=== PATIENT | male | born 1985 | race African-American/Black ===

== ENCOUNTER 2016-08-16 11:48 | Emergency (ER) | payer OTHER ==
[~2016-08-16] VITALS: Ht 180.3 cm; Wt 81.6 kg
[~2016-08-16 11:48] MED LIST: ACETAMINOPHEN-1 EAC1 ORAL; ALBUTEROL SULF8.5 GM INH; AMOXICILLIN500 MG ORAL; AZITHROMYCIN250 MG ORAL; BENTYL10 MG ORAL; CIPROFLOXACIN500 M2 ORAL; CITALOPRAM HBR20 M1 ORAL; CLINDAMYCIN HC300 MG ORAL; CORTISONE14 GM TP; FLOVENT2 PUFF1 INH; FLUTICASONE PRO30 GM TOPIC; IBUPROFEN600 MG ORAL; IBUPROFEN800 MG ORAL; LORATADINE10 M1 PO; METRONIDAZOLE500 MG ORAL; NAPROSYN500 M1 ORAL; NORCO 5-325 TA1 EACH ORAL; NORVIR100 MG ORAL; PREDNISONE20 M1 PO; PREDNISONE20 MG ORAL; PREZISTA400 MG ORAL; STRIBILD TABLE1 EACH PO; TERBINAFINE15 GM TP; TRUVADA 200 MG1 EAC1 ORAL; VENTOLIN HFA18 GM INH; ZITHROMAX250 MG ORAL; ZOFRAN ODT4 MG ORAL; qvar PO; vit d2 PO
[2016-08-16 12:30] VITALS: BP 121/79
--- NOTE | 2016-08-16 12:32 | Emergency Room Report ---
History of Present Illness General Chief Complaint: Sore Throat Source: Medical Record Present Illness HPI 31-year-old male presents emergency department with nasal congestion, sore throat which is 5/10 in severity, burning in nature, and intermittent cough x10 days. Patient states that the cough just began yesterday. Patient states that his nasal congestion is his main symptoms he also reports intermittent headaches due to increased pressure in the face. Patient states has history of Asthma and HIV. Patient states his last viral load was undetectable and he has a normal CD4 count. Patient denies fever she reports chills states he is up-to- date with vaccinations denies ill contacts or recent travel. Denies CP, Palpitations, LOC, AMS, dizziness, Changes in Vision, Sensation, paresthesias, or a sudden severe headache. Allergies: Coded Allergies: PENICILLINS (Unverified Allergy, Unknown, 12/08/14) Patient History Past Medical History: see triage record, HIV Past Surgical History: none Pertinent Family History: none Immunizations: UTD Reviewed Nursing Documentation: PMH: Agreed, PSxH: Agreed Nursing Documentation-PMH Past Medical History: No History, Except For Hx Asthma: Yes Review of Systems All Other Systems: negative except mentioned in HPI Physical Exam Vital Signs Date Time Temp Pulse Resp B/P Pulse Ox O2 Delivery O2 Flow Rate FiO2 08/16/16 12:10 98.1 75 18 121/79 99 Room Air Sp02 EP Interpretation: reviewed, normal General Appearance: no apparent distress, alert, GCS 15, non-toxic Head: normocephalic, atraumatic Eyes: bilateral eye PERRL, bilateral eye normal inspection ENT: hearing grossly normal, normal pharynx, no angioedema, normal voice, TMs + canals normal, uvula midline, moist mucus membranes, nasal congestion, pharyngeal erythema, other - frontal and maxillary sinus TTP Neck: full range of motion, supple/symm/no masses Respiratory: chest non-tender, lungs clear, normal breath sounds, speaking full sentences Cardiovascular #1: regular rate, rhythm, no edema Gastrointestinal: normal bowel sounds, non tender, soft, no guarding, no rebound Rectal: deferred Genitourinary: normal inspection, no CVA tenderness Musculoskeletal: back normal, gait/station normal, normal range of motion, non- tender, no calf tenderness Neurologic: alert, oriented x3, responsive, motor strength/tone normal, sensory intact, speech normal Psychiatric: judgement/insight normal, memory normal, mood/affect normal, no suicidal/homicidal ideation Skin: normal color, no rash, warm/dry, well hydrated Lymphatic: no adenopathy Medical Decision Making PA Attestation Dr. Bell is my supervising Physician whom patient management has been discussed with. Diagnostic Impression: Primary Impression: Acute sinusitis Qualified Codes: J01.10 - Acute frontal sinusitis, unspecified Additional Impressions: Acute sinus infection Qualified Codes: J01.10 - Acute frontal sinusitis, unspecified Acute sinusitis with symptoms > 10 days ER Course !* PT ALLERGIC TO PCN, therefore Amoxicillin was not prescribed due to allergy ! Pt. presents to the ED c/o nasal congestion, sore throat and intermittent cough x10 days. Patient states that the cough just began yesterday Ddx considered but are not limited to URI, pneumonia, PE, strep pharyngitis, meningitis, Sinusitis. Vital signs: Pt. is afebrile, the remaining VS are WNL H&PE are most consistent with Sinusitis due to symptoms for more than 10 days.. ORDERS: none required at this time, the diagnosis is clinical ED INTERVENTIONS: None required at this time. --PT. EDUCATION: Discussed rebound congestion with use of Affrin DISCHARGE: At this time pt. is stable for d/c to home. Will provide printed patient care instructions, and any necessary prescriptions. Care plan and follow up instructions have been discussed with the patient prior to discharge. Last Vital Signs Date Time Temp Pulse Resp B/P Pulse Ox O2 Delivery O2 Flow Rate FiO2 08/16/16 12:10 98.1 75 18 121/79 99 Room Air Disposition: HOME, SELF-CARE Condition: Stable Scripts Albuterol Sulfate* (ALBUTEROL SULFATE MDI*) 8.5 Gm Hfa.aer.ad 2 PUFF INH Q3H, #1 INH 2 Refills Prov: Jennifer Vieyra.AGreg 08/16/16 Lidocaine HCl (Lidocaine HCl Viscous) 100 Ml Solution 15 ML PO QID Y for For Pain, #120 ML Prov: Jennifer Vieyra P.AGreg 08/16/16 Clindamycin Hcl (CLINDAMYCIN HCL) 300 Mg Capsule 300 MG ORAL TID for 7 Days, #21 CAP Prov: Jennifer Vieyra.A. 08/16/16 Levofloxacin* (LEVAQUIN*) 500 Mg Tablet 500 MG ORAL DAILY for 5 Days, #5 TAB Prov: Jennifer Vieyra 08/16/16 Referrals: NON PHYSICIAN (PCP) Patient Instructions: Sinusitis, Adult, [id number], Sore Throat Additional Instructions: Take medications as directed. Follow up with PCP in 3-5 days Return sooner to ED if new symptoms occur, or current symptoms become worse. Jennifer Vieyra Aug 16, 2016 12:32
[2016-08-16] MEDS ORDERED: LEVAQUIN500 MG ORAL (12:39)
[2016-08-16] MEDS ORDERED: CLINDAMYCIN HC300 MG ORAL (12:39)
[2016-08-16] MEDS ORDERED: LIDOCAINE VISCO20 ML PO (12:39)
[2016-08-16 12:47] VITALS: BP 121/79
[2016-08-16] MEDS ORDERED: ALBUTEROL SULF8.5 GM INH (12:48)
== END 2016-08-16 12:48 | disposition home or self-care (01) ==
LOC: EMR 12:20
DX: J01.90 Acute sinusitis, unspecified (principal); J45.909 Unspecified asthma, uncomplicated
CPT/HCPCS: 99284

== ENCOUNTER 2016-09-09 15:50 | Emergency (ER) | payer OTHER ==
[~2016-09-09] VITALS: Ht 180.3 cm; Wt 84.8 kg
[~2016-09-09 15:50] MED LIST changes: +LEVAQUIN500 MG ORAL; +LIDOCAINE VISCO20 ML PO
[2016-09-09 16:30] VITALS: BP 133/79
[2016-09-09] MEDS ORDERED: IBUPROFEN600 MG ORAL (16:59)
[2016-09-09 17:11] VITALS: BP 133/79
--- NOTE | 2016-09-09 19:43 | Emergency Room Report ---
History of Present Illness General Chief Complaint: Pain Source: Patient Present Illness HPI The patient is a 31-year-old male presenting with right knee pain which began 4 months prior. Patient is unsure of why the pain began and denies any injury to the knee. Pain is described as a 10 out of 10 dull ache it does not radiate from the knee. Pain worse with touch and movement. Patient has seen his primary care doctor who has scheduled an MRI next month. Patient has not had an x-ray done. Pt denies any other symptoms including rash, F, chills, numbness/ tingling Allergies: Coded Allergies: PENICILLINS (Unverified Allergy, Unknown, 12/08/14) Patient History Past Medical History: see triage record Pertinent Family History: none Reviewed Nursing Documentation: PMH: Agreed, PSxH: Agreed Nursing Documentation-PMH Hx Asthma: Yes Review of Systems All Other Systems: negative except mentioned in HPI Physical Exam Vital Signs Date Time Temp Pulse Resp B/P Pulse Ox O2 Delivery O2 Flow Rate FiO2 09/09/16 16:20 98.1 72 16 133/79 100 Room Air Sp02 EP Interpretation: reviewed, normal General Appearance: no apparent distress, alert, GCS 15, non-toxic Head: normocephalic, atraumatic Eyes: bilateral eye PERRL, bilateral eye normal inspection Musculoskeletal: normal inspection, gait/station normal, normal range of motion , tender - TTP over anterior knee Neurologic: alert, oriented x3, responsive, motor strength/tone normal, sensory intact, speech normal Psychiatric: judgement/insight normal, memory normal, mood/affect normal, no suicidal/homicidal ideation Reflexes: 3+ bicep (R), 3+ bicep (L), 3+ tricep (R), 3+ tricep (L), 3+ knee (R) , 3+ knee (L) Skin: normal color, no rash, warm/dry, well hydrated Lymphatic: no adenopathy Procedures Splinting Splinting : Consent: Verbal Location: R knee Pre-Made Type: ERICA wrap Splint: knee Pre-Proc Neuro Vasc Exam: normal Post-Proc Neuro Vasc Exam: normal Patient Tolerated: Well Complications: None Medical Decision Making PA Attestation Dr. Pineda is my supervising physician. Patient management was discussed with my supervising physician Diagnostic Impression: Primary Impression: Strain of right knee ER Course The patient is a 31-year-old male presenting with right knee pain which began 4 months prior Ddx considered include but not limited to sprain/strain, fracture, contusion PE: vitals WNL. NAD R knee: Full AROM. No edema. No erythema. No laxity. TTP over the anterior joint line. SILT X-ray of the knee is unremarkable. ERICA wrap is placed over the right knee the patient is provided crutches. Pt is given motrin for pain. ER precautions given and pt will FU with PMD and have MRI done. Other X-Ray Diagnostic Results Other X-Ray Diagnostic Results : X-Ray Ordered: R knee Date: Sep 09, 2016 EP Interpretation: Yes Findings: no fractures, no dislocation, no soft tissue swelling Number of Views: 3 PA Scribe Text I am acting as scribe for my supervising physician. My supervising physician's interpretation of the R knee xrays are there are no fractures, dislocations or soft tissue swelling. Last Vital Signs Date Time Temp Pulse Resp B/P Pulse Ox O2 Delivery O2 Flow Rate FiO2 09/09/16 17:11 98.1 16 133/79 100 Room Air 09/09/16 16:20 72 Status: improved Disposition: HOME, SELF-CARE Condition: Improved Scripts Ibuprofen* (MOTRIN*) 600 Mg Tablet 600 MG ORAL Q8H Y for For Pain, #30 TAB 0 Refills Prov: JOHN LORA 09/09/16 [facility]errals[facility] (PCP) Patient Instructions: Knee Pain Additional Instructions: I discussed my findings with the patient. All questions and concerns have been answered. Treatment and medication compliance have been addressed. I advised the patient that they need to follow up with PMD in 3-5 days. Return to ED if pain remains or worsens, numbness or tingling occurs, new rash is noticed, fever is noticed, or if needed for any reason. Patient verbalized understanding of discharge instructions. JOHN LORA Sep 09, 2016 19:43
--- NOTE | 2016-09-10 12:10 | Diagnostic Imaging Report ---
Indication: Pain 3 views of the right knee were obtained. Findings: No acute fracture, malalignment, or joint effusion are identified. Joint space is relatively well-maintained. Bone mineralization is within normal limits for age. Impression: Negative exam
== END 2016-09-09 17:10 | disposition home or self-care (01) ==
LOC: EMR 16:57
DX: S86.211A Strain of muscle(s) and tendon(s) of anterior muscle group at lower leg level, right leg, initial encounter (principal); J45.909 Unspecified asthma, uncomplicated; Z88.0 Allergy status to penicillin; X58.XXXA Exposure to other specified factors, initial encounter; Y92.9 Unspecified place or not applicable; Y99.8 Other external cause status
CPT/HCPCS: 29530; 99283

== ENCOUNTER 2016-10-30 08:27 | Emergency (ER) | payer OTHER ==
[~2016-10-30] VITALS: Ht 180.3 cm; Wt 79.8 kg
[2016-10-30] MEDS ORDERED: LORATADINE10 M1 PO (08:39)
[2016-10-30] MEDS ORDERED: STRIBILD TABLE1 EACH PO (08:41)
[2016-10-30] MEDS ORDERED: FLOVENT2 PUFFS INH (08:41)
[2016-10-30 08:46] VITALS: BP 119/71
[2016-10-30 09:00] VITALS: BP 119/71
[2016-10-30] MEDS ORDERED: NORCO 5-325 TA1 EACH ORAL (09:00)
[2016-10-30] MEDS ORDERED: PEPCID20 MG ORAL (09:00)
--- NOTE | 2016-10-30 09:29 | Emergency Room Report ---
History of Present Illness General Chief Complaint: Diarrhea Source: Patient Present Illness HPI 31YOM with 3-4 days 3x daily watery diarrhea asssoc with stomach "cramps." No abd pain, fever/chills, nausea/vomiting, sick contacts, foreign travel. HIV+, on HAART. Undetectable viral load. Been taking VERY high doses of ibuprofen for chronic right knee pain - up to 2-3 800mg tablets ibuprofen THREE times a day. Was seen here prior for right knee pain, xray was negative. Pain worse when walking, feels it "under knee." Had MRI last week but doesnt know result yet. Denies trauma to knee, swelling, redness, fever/chills. Allergies: Coded Allergies: PENICILLINS (Unverified Allergy, Unknown, 12/08/14) Patient History Past Medical History: HIV Past Surgical History: none Pertinent Family History: none Social History: Denies: alcohol use, drug use, smoking Immunizations: UTD Reviewed Nursing Documentation: PMH: Agreed, PSxH: Agreed Nursing Documentation-PMH Past Medical History: No History, Except For Hx Asthma: Yes Review of Systems All Other Systems: negative except mentioned in HPI Physical Exam Vital Signs Date Time Temp Pulse Resp B/P Pulse Ox O2 Delivery O2 Flow Rate FiO2 10/30/16 08:31 98.2 94 16 119/71 98 Room Air Sp02 EP Interpretation: reviewed, normal General Appearance: normal inspection, well appearing, no apparent distress, alert, GCS 15, non-toxic Head: normocephalic, atraumatic Eyes: bilateral eye EOMI, bilateral eye PERRL ENT: normal ENT inspection, hearing grossly normal, normal voice Neck: normal inspection, full range of motion, supple, no bony tend Respiratory: normal inspection, lungs clear, normal breath sounds, no respiratory distress, no retraction, no wheezing Cardiovascular #1: regular rate, rhythm, no edema Gastrointestinal: normal inspection, normal bowel sounds, non tender, soft, no guarding, no hernia Genitourinary: no CVA tenderness Musculoskeletal: normal inspection, back normal, normal range of motion, Melisa' s Sign negative, other - right knee: no swelling, no erythema. No joint laxity Neurologic: normal inspection, alert, oriented x3, responsive, bevel gear generator operator III-XII nml as tested, motor strength/tone normal, speech normal Psychiatric: normal inspection, judgement/insight normal, mood/affect normal Skin: normal inspection Medical Decision Making Diagnostic Impression: Primary Impression: Diarrhea Qualified Codes: R19.7 - Diarrhea, unspecified Additional Impression: Right knee pain Qualified Codes: M25.561 - Pain in right knee; G89.29 - Other chronic pain ER Course Diarrhea and cramps likely gastritis from overdosing of ibuprofen for chronic right knee pain Abd soft, NT/ND - unlikely perforation. No blood in stool, unlikely upper GI bleed No sign of septic infection right knee Atraumatic - no joint laxity Joint pain possibly related to side effect of antiretrovirals Advised STOP Ibuprofen Rx Pepcid for 1 week Rx norco for knee pain PMD followup for MRI result, consider switching HAART meds given joint pain Last Vital Signs Date Time Temp Pulse Resp B/P Pulse Ox O2 Delivery O2 Flow Rate FiO2 10/30/16 09:00 98.2 94 16 119/71 98 Room Air Status: improved Disposition: HOME, SELF-CARE Condition: Improved Scripts Famotidine (PEPCID) 20 Mg Tablet 20 MG ORAL BID for 7 Days, #14 TAB 0 Refills Prov: JESSICA PAYAN M.D. 10/30/16 Hydrocodone Bit/Acetaminophen 5-325* (NORCO 5-325*) 1 Each Tablet 1 TAB ORAL Q8HR Y for knee pain, #20 TAB 0 Refills Prov: JESSICA PAYAN M.D. 10/30/16 Patient Instructions: Gastritis, Adult Additional Instructions: - STOP ibuprofen - Take pepcid twice daily for 1 week - Take [place] as needed for knee pain - Follow up with your doctor for result of MRI - Discuss with doctor possibility that your medications are contributing to your knee pain JESSICA PAYAN M.D. Oct 30, 2016 09:29
== END 2016-10-30 09:06 | disposition home or self-care (01) ==
LOC: EMR 08:44
DX: R19.7 Diarrhea, unspecified (principal); M25.561 Pain in right knee; G89.29 Other chronic pain; J45.909 Unspecified asthma, uncomplicated; Z88.0 Allergy status to penicillin
CPT/HCPCS: 99284

== ENCOUNTER 2016-11-28 07:32 | Emergency (ER) | payer OTHER ==
[~2016-11-28] VITALS: Ht 172.7 cm; Wt 49.9 kg
[~2016-11-28 07:32] MED LIST changes: +FLOVENT2 PUFFS INH; +PEPCID20 MG ORAL
[2016-11-28 07:45] VITALS: BP 120/80
[2016-11-28 07:55] VITALS: BP 120/80
[2016-11-28] MEDS ORDERED: AZITHROMYCIN250 MG ORAL (07:58)
[2016-11-28] MEDS ORDERED: IBUPROFEN600 MG ORAL (07:58)
--- NOTE | 2016-11-29 07:17 | Emergency Room Report ---
History of Present Illness General Chief Complaint: Flu Like Symptoms Source: Patient Present Illness HPI Patient present with complaints of sore throat Ongoing for the past 2 days Increased pain with swallowing Denies any fevers Pain is 4/10 sharp Denies any posterior neck pain denies any headache or visual changes denies any chest pain or shortness of breath he also has a mild runny nose Patient appeared to be limping in triage questions further patient reported that he had chronic right knee pain for which she was getting worked up as an outpatient, and has had MRI Allergies: Coded Allergies: PENICILLINS (Unverified Allergy, Unknown, 12/08/14) Patient History Past Medical History: see triage record Pertinent Family History: none Reviewed Nursing Documentation: PMH: Agreed, PSxH: Agreed Nursing Documentation-PMH Hx Cardiac Problems: No Hx Hypertension: No Hx Pacemaker: No Hx Asthma: Yes Hx COPD: No Hx Diabetes: No Hx Cancer: No Hx Gastrointestinal Problems: No Hx Dialysis: No History Of Psychiatric Problem: No Hx Cerebrovascular Accident: No Hx Seizures: No Review of Systems All Other Systems: negative except mentioned in HPI Physical Exam Vital Signs Date Time Temp Pulse Resp B/P Pulse Ox O2 Delivery O2 Flow Rate FiO2 11/28/16 07:39 98.1 78 16 120/80 99 Room Air Sp02 EP Interpretation: reviewed, normal General Appearance: well appearing, no apparent distress Head: normocephalic, atraumatic Eyes: bilateral eye EOMI, bilateral eye PERRL ENT: no angioedema, normal voice, pharyngeal erythema Neck: supple, thyroid normal, no meningismus Respiratory: lungs clear, normal breath sounds Cardiovascular #1: regular rate, rhythm Gastrointestinal: soft, no mass Neurologic: alert, oriented x3, responsive Skin: no rash Lymphatic: no adenopathy Medical Decision Making Diagnostic Impression: Primary Impression: Pharyngitis ER Course Patient has clinical findings the pharyngitis Was placed on oral antibiotics Patient's right knee discomfort is not further addressed and has been worked up as an outpatient Last Vital Signs Date Time Temp Pulse Resp B/P Pulse Ox O2 Delivery O2 Flow Rate FiO2 11/28/16 07:55 98.1 16 120/80 99 Room Air 11/28/16 07:45 78 Status: unchanged Disposition: HOME, SELF-CARE Condition: Stable Scripts Ibuprofen* (MOTRIN*) 600 Mg Tablet 600 MG ORAL Q8H Y for For Pain, #20 TAB 0 Refills Prov: JAMEHDOR,ALI D.O. 11/28/16 Azithromycin* (ZITHROMAX*) 250 Mg Tablet 500 MG ORAL ONCE for 7 Days, TAB 0 Refills Prov: GARDENIA GUTIERREZ D.O. 11/28/16 [facility] ([facility]P) Patient Instructions: Pharyngitis, [id number] Additional Instructions: Patient is provided with the discharge instructions notified to follow up with primary doctor in the next 2-3 days otherwise return to the er with any worsening symptoms. Please note that this report is being documented using [email or web address] technology. This can lead to erroneous entry secondary to incorrect interpretation by the dictating instrument. GARDENIA GUTIERREZ D.O. November 29, 2016 07:17
== END 2016-11-28 07:55 | disposition home or self-care (01) ==
LOC: EMR 07:46
DX: J02.9 Acute pharyngitis, unspecified (principal); J45.909 Unspecified asthma, uncomplicated
CPT/HCPCS: 99284

== ENCOUNTER 2017-02-02 12:25 | Emergency (ER) | payer OTHER ==
[~2017-02-02] VITALS: Ht 180.3 cm; Wt 80.7 kg
[2017-02-02 12:28] VITALS: BP 128/67
--- NOTE | 2017-02-02 12:59 | Emergency Room Report ---
History of Present Illness General Chief Complaint: Sore Throat Source: Patient Present Illness HPI 31 YO Male presents to the ED c/o : sore throat, tonsillar swelling, and nasal congestion x 1week. denies fevers or cough. denies neck pain or stiffness. pain is 9/10 in severity exacerbated with swallowing, described as razor blades on the back of the throat. pt. has been doing warm salt gargles with no relief. denies rashes, abdominal pain, recent travel or ill contacts. Denies CP, Palpitations, LOC, AMS, dizziness, Changes in Vision, Sensation, paresthesias, or a sudden severe headache. Allergies: Coded Allergies: PENICILLINS (Unverified Allergy, Unknown, 12/08/14) Patient History Past Medical History: see triage record Past Surgical History: none Pertinent Family History: none Immunizations: UTD Reviewed Nursing Documentation: PMH: Agreed, PSxH: Agreed Nursing Documentation-PMH Hx Hypertension: No Hx Pacemaker: No Hx Asthma: Yes Hx COPD: No Hx Diabetes: No Hx Cancer: No Hx Gastrointestinal Problems: No Hx Dialysis: No Hx Cerebrovascular Accident: No Hx Seizures: No Review of Systems All Other Systems: negative except mentioned in HPI Physical Exam Vital Signs Date Time Temp Pulse Resp B/P Pulse Ox O2 Delivery O2 Flow Rate FiO2 02/02/17 12:28 97.5 95 16 128/67 97 Room Air Sp02 EP Interpretation: reviewed, normal General Appearance: no apparent distress, alert, GCS 15, non-toxic Head: normocephalic, atraumatic Eyes: bilateral eye PERRL, bilateral eye normal inspection ENT: hearing grossly normal, normal pharynx, no angioedema, normal voice, TMs + canals normal, uvula midline, nasal congestion, tonsillar swelling, pharyngeal erythema Neck: full range of motion, no meningismus, no bony tend, supple/symm/no masses Respiratory: lungs clear, normal breath sounds, speaking full sentences Cardiovascular #1: regular rate, rhythm, no edema Rectal: deferred Musculoskeletal: back normal, gait/station normal, normal range of motion, non- tender Neurologic: alert, oriented x3, responsive, motor strength/tone normal, sensory intact, speech normal Psychiatric: judgement/insight normal, memory normal, mood/affect normal Skin: normal color, no rash, warm/dry, well hydrated Lymphatic: no adenopathy Medical Decision Making PA Attestation Dr. Bell is my supervising Physician whom patient management has been discussed with. Diagnostic Impression: Primary Impression: Pharyngitis, acute Qualified Codes: J02.9 - Acute pharyngitis, unspecified ER Course Pt. presents to the ED c/o : sore throat, tonsillar swelling, and nasal congestion x 1week. denies fevers or cough. denies neck pain or stiffness. Ddx considered but are not limited to: pharyngitis, strep, YARD LABORER, ludwigs angina, URI Vital signs: are WNL, pt. is afebrile H&PE are most consistent with: pharyngitis presumed strep. ORDERS: None required at this time as the diagnosis is clinical ED INTERVENTIONS: none required at this time. DISCHARGE: At this time pt. is stable for d/c to home. Will provide printed patient care instructions, and any necessary prescriptions. Care plan and follow up instructions have been discussed with the patient prior to discharge. Last Vital Signs Date Time Temp Pulse Resp B/P Pulse Ox O2 Delivery O2 Flow Rate FiO2 02/02/17 12:28 97.5 95 16 128/67 97 Room Air Disposition: HOME, SELF-CARE Condition: Stable Scripts Acetaminophen* (TYLENOL EXTRA STRENGTH*) 500 Mg Tablet 500 MG ORAL Q6H, #20 TAB 0 Refills Prov: Jennifer Vieyra 02/02/17 Pseudoephedrine Hcl* (NEXAFED*) 30 Mg Tablet 30 MG ORAL Q6H Y for congestion, #20 TAB Prov: Jennifer Vieyra.AGreg 02/02/17 Azithromycin* (ZITHROMAX*) 250 Mg Tablet 250 MG ORAL DAILY for 6 Days, #6 TAB 0 Refills Prov: Jennifer VieyraAGreg 02/02/17 Lidocaine HCl 2% Viscous (Lidocaine HCl 2% Viscous) 100 Ml Solution 15 ML ORAL QID, #118 ML Prov: Jennifer Vieyra 02/02/17 Patient Instructions: Pharyngitis, [id number] Additional Instructions: Take medications as directed. Follow up with a Primary Care Provider in 3-5 days, even if your symptoms have resolved. --Please review list of primary care clinics, if you do not already have a primary care provider Return sooner to ED if new symptoms occur, or current symptoms become worse. - Please note that this Emergency Department Report was dictated using [employer] in the [employer]ou[employer] therapist technology software, occasionally this can lead to erroneous entry secondary to interpretation by the dictation equipment. Jennifer Vieyra Feb 02, 2017 12:59
[2017-02-02] MEDS ORDERED: AZITHROMYCIN250 MG ORAL (13:01)
[2017-02-02] MEDS ORDERED: TYLENOL EXTRA500 MG ORAL (13:01)
[2017-02-02] MEDS ORDERED: LIDOCAINE VISC100 ML ORAL (13:01)
[2017-02-02] MEDS ORDERED: NEXAFED30 MG ORAL (13:01)
[2017-02-02 13:07] VITALS: BP 128/67
== END 2017-02-02 13:07 | disposition home or self-care (01) ==
LOC: EMR 12:47
DX: J02.9 Acute pharyngitis, unspecified (principal); J45.909 Unspecified asthma, uncomplicated; Z88.0 Allergy status to penicillin
CPT/HCPCS: 99284

== ENCOUNTER 2017-03-20 09:50 | Emergency (ER) | payer OTHER ==
[~2017-03-20] VITALS: Ht 180.3 cm; Wt 81.6 kg
[~2017-03-20 09:50] MED LIST changes: +LIDOCAINE VISC100 ML ORAL; +NEXAFED30 MG ORAL; +TYLENOL EXTRA500 MG ORAL
[2017-03-20 10:20] VITALS: BP 115/63
[2017-03-20 10:53] LABS: APPEARANCE,URINE CLEAR; KETONES,URINE NEGATIVE (NEGATIVE); LEUKOCYTE ESTERASE ,URINE NEGATIVE (NEGATIVE); NITRITE,URINE NEGATIVE (NEGATIVE); PH,URINE 8 (4.5-8.0); PROTEIN,URINE NEGATIVE (NEGATIVE); UROBILINOGEN,URINE NORMAL MG/DL (0.0-1.0)
[2017-03-20 10:54] LABS: BASOPHILS % (AUTO) 0.9 % (0.0-2.0); LYMPHOCYTES % (AUTO) 21.5 % (20.0-45.0); MEAN CORPUSCULAR HEMOGLOBIN 28.1 PG (27.0-31.0); MEAN CORPUSCULAR HGB CONC 31.8 G/DL (32.0-36.0); MEAN CORPUSCULAR VOLUME 88 FL (80-99); MEAN PLATELET VOLUME 10.3 FL (6.5-10.1); MONOCYTES % (AUTO) 8.4 % (1.0-10.0); NEUTROPHILS % (AUTO) 69.3 % (45.0-75.0); PLATELET COUNT 151 K/UL (150-450); RED BLOOD COUNT 5.16 M/UL (4.70-6.10); RED CELL DISTRIBUTION WIDTH 12.5 % (11.6-14.8); WHITE BLOOD COUNT 5.5 K/UL (4.8-10.8)
[2017-03-20 11:05] LABS: ALANINE AMINOTRANSFERASE 13 U/L (3-41); ALBUMIN/GLOBULIN RATIO 1.3 (1.0-2.7); ANION GAP 10 (5-15); ASPARTATE AMINO TRANSFERASE 16 U/L (5-40); CALCIUM 9.5 mg/dL (8.6-10.2); CARBON DIOXIDE 26 mEQ/L (20-30); CHLORIDE 101 mEQ/L (98-107); CREATININE 0.8 mg/dL (0.7-1.2); GLOMERULAR FILTRATION RATE > 60 mL/min (>60); HEMOLYSIS 6; LIPASE 21 U/L (< 60); POTASSIUM 3.9 mEQ/L (3.4-4.9); SODIUM 137 mEQ/L (135-145); TOTAL PROTEIN 7.4 g/dL (6.6-8.7)
[2017-03-20 12:23] VITALS: BP 123/87
--- NOTE | 2017-03-20 14:57 | Emergency Room Report ---
History of Present Illness General Chief Complaint: Abdominal Pain Source: Patient, Medical Record Present Illness HPI 31 yo male with no sig pmhx p/w one week of nausea vomiting and diarrhea Patient states vomiting started 6 days ago which has since subsided for the last 3 days, Patient complains of mild abdominal pain generalized, non radiating, crampy in nature, intermittent. No relieving or exacerbating factors. Severity is mild. Patient also complains of ~3-4 episodes of watery non bloody diarrhea for the past 2 days Denies fever, chills. No hx of abdominal surgeries. No hx of endoscopies/colonoscopies. Denies any recent antibiotic use, any recent travel or sick contacts Allergies: Coded Allergies: PENICILLINS (Unverified Allergy, Unknown, 12/08/14) Patient History Past Medical History: see triage record Past Surgical History: none Pertinent Family History: none Reviewed Nursing Documentation: PMH: Agreed, PSxH: Agreed Nursing Documentation-PMH Past Medical History: No History, Except For Hx Hypertension: No Hx Pacemaker: No Hx Asthma: Yes Hx COPD: No Hx Diabetes: No Hx Cancer: No Hx Gastrointestinal Problems: No Hx Dialysis: No History Of Psychiatric Problem: Yes - Depression Hx Cerebrovascular Accident: No Hx Seizures: No Review of Systems All Other Systems: negative except mentioned in HPI Physical Exam Vital Signs Date Time Temp Pulse Resp B/P (MAP) Pulse Ox O2 Delivery O2 Flow Rate FiO2 03/20/17 09:53 97.7 81 14 120/78 99 Room Air Sp02 EP Interpretation: reviewed, normal General Appearance: normal inspection, well appearing, no apparent distress, alert, GCS 15, non-toxic, other - Well-hydrated, not in distress, conversing appropriately Head: normocephalic, atraumatic Eyes: bilateral eye normal inspection, bilateral eye PERRL, bilateral eye EOMI ENT: normal ENT inspection, normal pharynx, normal voice, moist mucus membranes Neck: normal inspection, full range of motion, supple Respiratory: normal inspection, lungs clear, normal breath sounds, no respiratory distress, no retraction, no wheezing, speaking full sentences, chest symmetrical Cardiovascular #1: normal inspection, regular rate, rhythm, no edema, normal capillary refill Cardiovascular #2: 2+ radial (R), 2+ radial (L) Gastrointestinal: normal inspection, non tender, soft, non-distended, no guarding Genitourinary: no CVA tenderness Musculoskeletal: normal inspection, back normal, normal range of motion, non- tender Neurologic: normal inspection, alert, oriented x3, responsive, motor strength/ tone normal, sensory intact, normal gait, speech normal Psychiatric: normal inspection, judgement/insight normal, memory normal Skin: normal inspection, normal color, no rash, warm/dry, well hydrated, normal turgor Medical Decision Making Diagnostic Impression: Primary Impression: Nausea, vomiting, and diarrhea ER Course 31 yo male with nausea and vomiting which has now resolved now with diarrhea Differential Diagnosis: Gastritis, gastroenteritis, cholecystitis, appendicitis, diverticulitis, SBO, mesenteric ischemia, cardiac, UTI/pyelo At this time abdomen is soft nontender, not likely to have acute intra- abdominal surgical pathology, will hold CT for now. due to history and physical exam gastroenteritis is most likely in this patient Plan: Basic labs, ua, Zofran and IV fluids ER course: Patient has remained stable during ED stay. No episodes of nausea vomiting or diarrhea. Repeat abdominal exam is benign. Disposition: Patient is to be discharged to home. Patient is instructed to follow up with their primary care doctor within 5 days. Strict return precautions discussed with patient such as fever, chills, worsening/severe pain, nausea, vomiting, which may indicate severe illness. Patient verbalizes understanding and agrees with plan. Please note that this Emergency Department Report was dictated using gauzzpath[employer] laboratory technologist technology software, occasionally this can lead to erroneous entry secondary to interpretation by the dictation equipment Laboratory Tests Test 03/20/17 10:26 03/20/17 10:30 Urine Color Pale yellow Urine Appearance Clear Urine pH 8 (4.5-8.0) Urine Specific [place] 1.010 (1.005-1.035) Urine Protein Negative (NEGATIVE) Urine Glucose (UA) Negative (NEGATIVE) Urine Ketones Negative (NEGATIVE) Urine Occult Blood Negative (NEGATIVE) Urine Nitrite Negative (NEGATIVE) Urine Bilirubin Negative (NEGATIVE) Urine Urobilinogen Normal MG/DL (0.0-1.0) Urine Leukocyte Esterase Negative (NEGATIVE) White Blood Count 5.5 K/UL (4.8-10.8) Red Blood Count 5.16 M/UL (4.70-6.10) Hemoglobin 14.5 G/DL (14.2-18.0) Hematocrit 45.6 % (42.0-52.0) Mean Corpuscular Volume 88 FL (80-99) Mean Corpuscular Hemoglobin 28.1 PG (27.0-31.0) Mean Corpuscular Hemoglobin Concent 31.8 G/DL (32.0-36.0) L Red Cell Distribution Width 12.5 % (11.6-14.8) Platelet Count 151 K/UL (150-450) Mean Platelet Volume 10.3 FL (6.5-10.1) H Neutrophils (%) (Auto) 69.3 % (45.0-75.0) Lymphocytes (%) (Auto) 21.5 % (20.0-45.0) Monocytes (%) (Auto) 8.4 % (1.0-10.0) Eosinophils (%) (Auto) 0.0 % (0.0-3.0) Basophils (%) (Auto) 0.9 % (0.0-2.0) Sodium Level 137 mEQ/L (135-145) Potassium Level 3.9 mEQ/L (3.4-4.9) Chloride Level 101 mEQ/L (98-107) Carbon Dioxide Level 26 mEQ/L (20-30) Anion Gap 10 (5-15) Blood Urea Nitrogen 10 mg/dL (7-23) Creatinine 0.8 mg/dL (0.7-1.2) Estimate Glomerular Filtration Rate > 60 mL/min (>60) Glucose Level 97 mg/dL (74-106) Calcium Level 9.5 mg/dL (8.6-10.2) Total Bilirubin 0.3 mg/dL (0.0-1.2) Aspartate Amino Transferase (AST) 16 U/L (5-40) Alanine Aminotransferase (ALT) 13 U/L (3-41) Alkaline Phosphatase 61 U/L (40-129) Total Protein 7.4 g/dL (6.6-8.7) Albumin 4.3 g/dL (3.5-5.2) Globulin 3.1 g/dL Albumin/Globulin Ratio 1.3 (1.0-2.7) Lipase 21 U/L (< 60) Last Vital Signs Date Time Temp Pulse Resp B/P (MAP) Pulse Ox O2 Delivery O2 Flow Rate FiO2 03/20/17 12:23 97.2 77 16 123/87 99 Room Air Disposition: HOME, SELF-CARE Condition: Improved Departure Forms: Return to Work Return to Work in (Days): 2 Patient Instructions: Viral Gastroenteritis, Adult Additional Instructions: Please follow up with your primary care doctor within 3 days. Please come back to the emergency room if you are having worsening abdominal pain, chest pain, shortness of breath, intractable nausea or vomiting Matty Butts M.D. Mar 20, 2017 14:57
== END 2017-03-20 12:29 | disposition home or self-care (01) ==
LOC: EMR 10:14
DX: R11.2 Nausea with vomiting, unspecified (principal); R19.7 Diarrhea, unspecified; J45.909 Unspecified asthma, uncomplicated; F32.9 Major depressive disorder, single episode, unspecified
CPT/HCPCS: 36415; 80053; 81003; 83690; 85025; 96361; 96374; 99284; J2405

== ENCOUNTER 2017-04-10 18:03 | Emergency (ER) | payer OTHER ==
[~2017-04-10] VITALS: Ht 180.3 cm; Wt 79.8 kg
[2017-04-10 18:54] VITALS: BP 140/91
--- NOTE | 2017-04-10 19:02 | Emergency Room Report ---
History of Present Illness General Chief Complaint: General Complaint Source: Patient Present Illness HPI 32 YO Male presents to the ED c/o Sore throat with 9/10 in severity painful Oral lesions on his inner lip, roof of the mouth, and inner cheeks x 3 days. Denies fevers, chills, cough, neck pain or stiffness. Denies PLASENCIA. Pt. is UTD with vaccinations, denies ill contacts or recent travel. Pt has hx of HIV , takes anti-retrovirals. Denies swelling of the lips or tongue, SOB, difficulty breathing, rash, or lesions elsewhere on the body. denies blisters or new medications.Denies CP, Palpitations, LOC, AMS, dizziness, Changes in Vision, Sensation, paresthesias, or a sudden severe headache. Allergies: Coded Allergies: PENICILLINS (Unverified Allergy, Unknown, 12/08/14) Patient History Past Medical History: see triage record Past Surgical History: none Pertinent Family History: none Immunizations: UTD Reviewed Nursing Documentation: PMH: Agreed, PSxH: Agreed Nursing Documentation-PMH Past Medical History: No History, Except For Hx Hypertension: No Hx Pacemaker: No Hx Asthma: Yes Hx COPD: No Hx Diabetes: No Hx Cancer: No Hx Gastrointestinal Problems: No Hx Dialysis: No Hx Cerebrovascular Accident: No Hx Seizures: No Review of Systems All Other Systems: negative except mentioned in HPI Physical Exam Vital Signs Date Time Temp Pulse Resp B/P (MAP) Pulse Ox O2 Delivery O2 Flow Rate FiO2 04/10/17 18:20 97.7 86 18 140/91 99 Room Air Sp02 EP Interpretation: reviewed, normal General Appearance: no apparent distress, alert, GCS 15, non-toxic Head: normocephalic, atraumatic Eyes: bilateral eye normal inspection, bilateral eye PERRL ENT: hearing grossly normal, normal pharynx, no angioedema, normal voice, TMs + canals normal, uvula midline, moist mucus membranes, other - superficial ulcers noted on the roof of the mouth, inner lower lip, and bilateral buccal surfaces of the cheeks. no tonsillar swelling, pharyngeal erythema or exudates. Neck: full range of motion, no meningismus Respiratory: lungs clear, normal breath sounds, speaking full sentences Cardiovascular #1: regular rate, rhythm, normal capillary refill Rectal: deferred Genitourinary: normal inspection, no CVA tenderness Musculoskeletal: back normal, gait/station normal, normal range of motion, non- tender Neurologic: alert, oriented x3, responsive, motor strength/tone normal, sensory intact, speech normal Psychiatric: judgement/insight normal, memory normal, mood/affect normal Skin: normal color, no rash, warm/dry, well hydrated Lymphatic: no adenopathy Medical Decision Making PA Attestation Dr. Diego is my supervising Physician whom patient management has been discussed with. Diagnostic Impression: Primary Impression: Viral sore throat Additional Impression: Canker sores oral ER Course 32 YO Male presents to the ED c/o Sore throat with 9/10 in severity painful Oral lesions on his inner lip, roof of the mouth, and inner cheeks x 3 days. Denies fevers, chills, cough, neck pain or stiffness. Denies PLASENCIA. Pt. is UTD with vaccinations, denies ill contacts or recent travel. Pt has hx of HIV , takes anti-retrovirals. Denies swelling of the lips or tongue, SOB, difficulty breathing, rash, or lesions elsewhere on the body. denies blisters or new medications.Denies CP, Palpitations, LOC, AMS, dizziness, Changes in Vision, Sensation, paresthesias, or a sudden severe headache. Ddx considered but are not limited to: pharyngitis, strep, [employer] G[employer] TECHNICIAN, ludwigs angina, URI, candidiasis, hair leukoplakia just to name a few. Vital signs: are WNL, pt. is afebrile H&PE are most consistent with: canker sores most likely of viral etiology. ORDERS: None required at this time as the diagnosis is clinical ED INTERVENTIONS: none required at this time. DISCHARGE: At this time pt. is stable for d/c to home. Will provide printed patient care instructions, and any necessary prescriptions. Care plan and follow up instructions have been discussed with the patient prior to discharge. Last Vital Signs Date Time Temp Pulse Resp B/P (MAP) Pulse Ox O2 Delivery O2 Flow Rate FiO2 04/10/17 18:54 97.7 18 140/91 99 Room Air 04/10/17 18:20 86 Disposition: HOME, SELF-CARE Condition: Stable Scripts Acyclovir* (ZOVIRAX*) 800 Mg Tablet 800 MG ORAL THREE TIMES A DAY for 5 Days, #15 CAP 0 Refills Prov: Jennifer Vieyra 04/10/17 Lidocaine HCl 2% Viscous (Lidocaine HCl 2% Viscous) 100 Ml Solution 10 ML ORAL QID, #118 ML Prov: Jennifer Vieyra 04/10/17 Patient Instructions: Canker Sores, Pharyngitis, [id number] Additional Instructions: Take medications as directed. Follow up with a Primary Care Provider in 3-5 days, even if your symptoms have resolved. --Please review list of primary care clinics, if you do not already have a primary care provider Return sooner to ED if new symptoms occur, or current symptoms become worse. - Please note that this Emergency Department Report was dictated using [employer] Inst[employer]ight[employer] gun parts technology software, occasionally this can lead to erroneous entry secondary to interpretation by the dictation equipment. Jennifer Vieyra Apr 10, 2017 19:02
[2017-04-10] MEDS ORDERED: ZOVIRAX800 MG ORAL (19:07)
[2017-04-10] MEDS ORDERED: LIDOCAINE VISC100 ML ORAL (19:07)
[2017-04-10 19:10] VITALS: BP 140/91
== END 2017-04-10 19:05 | disposition home or self-care (01) ==
LOC: EMR 18:40
DX: J02.8 Acute pharyngitis due to other specified organisms (principal); B97.89 Other viral agents as the cause of diseases classified elsewhere; K12.0 Recurrent oral aphthae; J45.909 Unspecified asthma, uncomplicated; Z88.0 Allergy status to penicillin
CPT/HCPCS: 99284

== ENCOUNTER 2017-05-09 03:08 | Emergency (ER) | payer OTHER ==
[~2017-05-09] VITALS: Ht 180.3 cm; Wt 82.6 kg
[~2017-05-09 03:08] MED LIST changes: +ZOVIRAX800 MG ORAL
[2017-05-09 03:20] VITALS: BP 134/75
[2017-05-09] MEDS ORDERED: ALBUTEROL SULF8.5 GM INH (03:57)
[2017-05-09 04:02] VITALS: BP 134/75
--- NOTE | 2017-05-09 04:06 | Emergency Room Report ---
History of Present Illness General Chief Complaint: Diarrhea Source: Patient Present Illness HPI 32-year-old male history of asthma presenting with diarrhea for 4 days Denies abdominal pain Denies fever chills, about 3-4 episodes of watery nonbloody diarrhea today No hx of abdominal surgeries. No hx of endoscopies/colonoscopies. Patient states that this has happened in the past, no recent travel no sick contacts no recent antibiotic use Allergies: Coded Allergies: PENICILLINS (Unverified Allergy, Unknown, 12/08/14) Patient History Past Medical History: see triage record Past Surgical History: none Pertinent Family History: none Reviewed Nursing Documentation: PMH: Agreed, PSxH: Agreed Nursing Documentation-PMH Hx Hypertension: No Hx Pacemaker: No Hx Asthma: Yes Hx COPD: No Hx Diabetes: No Hx Cancer: No Hx Gastrointestinal Problems: No Hx Dialysis: No Hx Cerebrovascular Accident: No Hx Seizures: No Review of Systems All Other Systems: negative except mentioned in HPI Physical Exam Vital Signs Date Time Temp Pulse Resp B/P (MAP) Pulse Ox O2 Delivery O2 Flow Rate FiO2 05/09/17 03:17 98.1 84 16 134/75 98 Room Air Sp02 EP Interpretation: reviewed, normal General Appearance: normal inspection, well appearing, no apparent distress, alert, GCS 15, non-toxic Head: normocephalic, atraumatic Eyes: bilateral eye normal inspection, bilateral eye PERRL, bilateral eye EOMI ENT: normal ENT inspection, normal pharynx, normal voice, moist mucus membranes Neck: normal inspection, full range of motion, supple Respiratory: normal inspection, lungs clear, normal breath sounds, no respiratory distress, no retraction, no wheezing, speaking full sentences, chest symmetrical Cardiovascular #1: normal inspection, regular rate, rhythm, no edema, normal capillary refill Cardiovascular #2: 2+ radial (R), 2+ radial (L) Gastrointestinal: normal inspection, non tender, soft, non-distended, no guarding Genitourinary: no CVA tenderness Musculoskeletal: normal inspection, back normal, normal range of motion, non- tender Neurologic: normal inspection, alert, oriented x3, responsive, motor strength/ tone normal, sensory intact, normal gait, speech normal Psychiatric: normal inspection, judgement/insight normal, memory normal Skin: normal inspection, normal color, no rash, warm/dry, well hydrated, normal turgor Medical Decision Making Diagnostic Impression: Primary Impression: Diarrhea ER Course 32-year-old male with diarrhea for 4 days Differential Diagnosis: Viral gastroenteritis, at this time abdomen is very soft nontender Plan: None emergency room, patient appears nontoxic, is able to tolerate by mouth, not dehydrated ER course: Patient has remained stable during ED stay. Disposition: Patient is to be discharged to home. Patient is instructed to follow up with their primary care doctor within 5 days. Strict return precautions discussed with patient such as fever, chills, worsening/severe abdominal pain, nausea, vomiting, black or bloody stools, which may indicate severe illness. Patient verbalizes understanding and agrees with plan. Please note that this Emergency Department Report was dictated using [employer] Solutionsknitting machine fixer technology software, occasionally this can lead to erroneous entry secondary to interpretation by the dictation equipment Last Vital Signs Date Time Temp Pulse Resp B/P (MAP) Pulse Ox O2 Delivery O2 Flow Rate FiO2 05/09/17 03:20 98.1 84 16 134/75 98 Room Air Disposition: HOME, SELF-CARE Condition: Stable Scripts Albuterol Sulfate* (ALBUTEROL SULFATE MDI*) 8.5 Gm Hfa.aer.ad 2 PUFF INH Q4H Y for cough/wheezing, #1 EA 0 Refills Prov: Matty Butts M.D. 05/09/17 Patient Instructions: Diarrhea, Adult Matty Butts M.D. May 09, 2017 04:06
== END 2017-05-09 04:04 | disposition home or self-care (01) ==
LOC: EMR 03:38
DX: R19.7 Diarrhea, unspecified (principal); J45.909 Unspecified asthma, uncomplicated; Z88.0 Allergy status to penicillin
CPT/HCPCS: 99283

== ENCOUNTER 2017-05-12 07:21 | Emergency (ER) | payer OTHER ==
[~2017-05-12] VITALS: Ht 180.3 cm; Wt 81.6 kg
[2017-05-12 07:35] VITALS: BP 105/68
[2017-05-12] MEDS ORDERED: Lidocaine 2% Visc 15ml soln ORAL ONE (07:45)
[2017-05-12] MEDS ORDERED: Mylanta II UD 30ml ORAL ONE (07:45)
[2017-05-12] MEDS ORDERED: Dicyclomine HCl 10mg/5ml oral soln ORAL ONE (07:45)
[2017-05-12 08:03] LABS: BASOPHILS % (AUTO) 1.9 % (0.0-2.0); EOSINOPHILS % (AUTO) 1.2 % (0.0-3.0); HEMATOCRIT 49.7 % (42.0-52.0); HEMOGLOBIN 16.4 G/DL (14.2-18.0); LYMPHOCYTES % (AUTO) 26.8 % (20.0-45.0); MEAN CORPUSCULAR VOLUME 88 FL (80-99); MONOCYTES % (AUTO) 11.5 % (1.0-10.0); NEUTROPHILS % (AUTO) 58.6 % (45.0-75.0); PLATELET COUNT 144 K/UL (150-450); RED BLOOD COUNT 5.66 M/UL (4.70-6.10); RED CELL DISTRIBUTION WIDTH 13.3 % (11.6-14.8); WHITE BLOOD COUNT 8.3 K/UL (4.8-10.8)
--- NOTE | 2017-05-12 08:07 | Emergency Room Report ---
History of Present Illness General Chief Complaint: Nausea, Vomiting, and Diarrhea Source: Patient Present Illness HPI 32-year-old male presents ED for evaluation. Patient states her approximately one week now is having cramping abdominal pain with diarrhea. Patient was seen here 4 days ago and was given reassurance that this is viral and was subsequent discharge. Patient states the symptoms have persisted and have gotten worse. Notes bloody diarrhea now. pain is cramping, 10/10, nonradiating. Notes some episodes of fevers and chills. Afebrile in triage. Patient notes history of HIV and is currently on medication. Denies sick contacts or recent travel. No other aggravating relieving factors. Denies any other associated symptoms Allergies: Coded Allergies: PENICILLINS (Unverified Allergy, Unknown, 12/08/14) Patient History Past Medical History: asthma Past Surgical History: none Pertinent Family History: none Social History: Denies: smoking, alcohol use, drug use Immunizations: UTD Reviewed Nursing Documentation: PMH: Agreed, PSxH: Agreed Nursing Documentation-PMH Past Medical History: No History, Except For Hx Hypertension: No Hx Pacemaker: No Hx Asthma: Yes Hx COPD: No Hx Diabetes: No Hx Cancer: No - HIV positive Hx Gastrointestinal Problems: No Hx Dialysis: No Hx Cerebrovascular Accident: No Hx Seizures: No Review of Systems All Other Systems: negative except mentioned in HPI Physical Exam Vital Signs Date Time Temp Pulse Resp B/P (MAP) Pulse Ox O2 Delivery O2 Flow Rate FiO2 05/12/17 07:25 98.4 117 20 105/68 95 Room Air Sp02 EP Interpretation: reviewed, normal General Appearance: no apparent distress, alert, GCS 15, non-toxic Head: normocephalic, atraumatic Eyes: bilateral eye normal inspection, bilateral eye PERRL ENT: hearing grossly normal, normal pharynx, no angioedema, normal voice Neck: full range of motion, supple/symm/no masses Respiratory: chest non-tender, lungs clear, normal breath sounds, speaking full sentences Cardiovascular #1: regular rate, rhythm, no edema Cardiovascular #2: 2+ carotid (R), 2+ carotid (L), 2+ radial (R), 2+ radial (L) , 2+ dorsalis pedis (R), 2+ dorsalis pedis (L) Gastrointestinal: normal bowel sounds, non tender, soft, non-distended, no guarding, no rebound Rectal: deferred Genitourinary: normal inspection, no CVA tenderness Musculoskeletal: back normal, gait/station normal, normal range of motion, non- tender Neurologic: alert, oriented x3, responsive, motor strength/tone normal, sensory intact, speech normal Psychiatric: judgement/insight normal, memory normal, mood/affect normal, no suicidal/homicidal ideation Reflexes: 3+ bicep (R), 3+ bicep (L), 3+ tricep (R), 3+ tricep (L), 3+ knee (R) , 3+ knee (L) Skin: normal color, no rash, warm/dry, well hydrated Lymphatic: no adenopathy Medical Decision Making Diagnostic Impression: Primary Impression: Colitis ER Course Hospital Course 32-year-old M presents to ED with cramping abdominal pain with vomiting, diarrhea differential diagnosis: gastritis, SBO, cholecystits, gastroenteritis Clinical course Patient placed on stretcher. On cardiac rehab nurse. After initial history and physical I ordered labs, IV fluids, Zofran, GI cocktail, pepcid Labs - no leukocytosis, electrolytes ok, LFTs normal Upon reassessment, patient states pain has improved. Given bloody diarrhea, persistence of symptoms and history of immunosuppression we will prescribe antibiotics I feel this is a highly complex case requiring extensive working including EKG/ Rhythm strip, Xray/CT/US, Blood/urine lab work, repeat exams while in ED, and administration of strong opiates/narcotics for pain control, admission to hospital or close patient follow up. Diagnosis - colitis Stable and discharged to home with prescriptions for Zantac, bentyl, flagyl, cipro. Followup with PMD. Return to ED if symptoms recur or worsen Labs Test 05/12/17 07:50 White Blood Count 8.3 K/UL (4.8-10.8) Red Blood Count 5.66 M/UL (4.70-6.10) Hemoglobin 16.4 G/DL (14.2-18.0) Hematocrit 49.7 % (42.0-52.0) Mean Corpuscular Volume 88 FL (80-99) Mean Corpuscular Hemoglobin 28.9 PG (27.0-31.0) Mean Corpuscular Hemoglobin Concent 32.9 G/DL (32.0-36.0) Red Cell Distribution Width 13.3 % (11.6-14.8) Platelet Count 144 K/UL (150-450) Mean Platelet Volume 9.6 FL (6.5-10.1) Neutrophils (%) (Auto) 58.6 % (45.0-75.0) Lymphocytes (%) (Auto) 26.8 % (20.0-45.0) Monocytes (%) (Auto) 11.5 % (1.0-10.0) Eosinophils (%) (Auto) 1.2 % (0.0-3.0) Basophils (%) (Auto) 1.9 % (0.0-2.0) Sodium Level 137 MMOL/L (136-145) Potassium Level 3.7 MMOL/L (3.5-5.1) Chloride Level 101 MMOL/L (98-107) Carbon Dioxide Level 23 MMOL/L (21-32) Anion Gap 13 mmol/L (5-15) Blood Urea Nitrogen 15 mg/dL (7-18) Creatinine 1.0 MG/DL (0.55-1.30) Estimat Glomerular Filtration Rate > 60 mL/min (>60) Glucose Level 108 MG/DL (74-106) Calcium Level 9.6 MG/DL (8.5-10.1) Total Bilirubin 0.6 MG/DL (0.2-1.0) Aspartate Amino Transf (AST/SGOT) 22 U/L (15-37) Alanine Aminotransferase (ALT/SGPT) 26 U/L (12-78) Alkaline Phosphatase 54 U/L (46-116) Total Protein 8.2 G/DL (6.4-8.2) Albumin 3.7 G/DL (3.4-5.0) Globulin 4.5 g/dL Albumin/Globulin Ratio 0.8 (1.0-2.7) Lipase 196 U/L (73-393) Last Vital Signs Date Time Temp Pulse Resp B/P (MAP) Pulse Ox O2 Delivery O2 Flow Rate FiO2 05/12/17 07:25 98.4 117 20 105/68 95 Room Air Status: improved Disposition: HOME, SELF-CARE Condition: Stable Scripts Ranitidine Hcl* (ZANTAC*) 150 Mg Tablet 150 MG ORAL DAILY, #30 TAB 0 Refills Prov: AKHIL RAY M.D. 05/12/17 Dicyclomine Hcl* (BENTYL*) 10 Mg Capsule 10 MG ORAL FOUR TIMES A DAY, #20 CAP Prov: AKHIL RAY M.D. 05/12/17 Metronidazole* (FLAGYL*) 500 Mg Tablet 500 MG ORAL THREE TIMES A DAY, #21 TAB Prov: AKHIL RAY M.D. 05/12/17 Ciprofloxacin Hcl* (CIPROFLOXACIN HCL*) 500 Mg Tablet 500 MG ORAL Q12H, #14 TAB 0 Refills Prov: AKHIL RAY M.D. 05/12/17 Referrals: [facility],REFERRING (PCP) AKHIL RAY M.D. May 12, 2017 08:07
[2017-05-12 08:20] LABS: ALANINE AMINOTRANSFERASE 26 U/L (12-78); ALBUMIN 3.7 G/DL (3.4-5.0); ALBUMIN/GLOBULIN RATIO 0.8 (1.0-2.7); ALKALINE PHOSPHATASE 54 U/L (46-116); ANION GAP 13 mmol/L (5-15); ASPARTATE AMINO TRANSFERASE 22 U/L (15-37); BILIRUBIN,TOTAL 0.6 MG/DL (0.2-1.0); BLOOD UREA NITROGEN 15 mg/dL (7-18); CALCIUM 9.6 MG/DL (8.5-10.1); CARBON DIOXIDE 23 MMOL/L (21-32); CHLORIDE 101 MMOL/L (98-107); POTASSIUM 3.7 MMOL/L (3.5-5.1); SODIUM 137 MMOL/L (136-145)
[2017-05-12] MEDS ORDERED: METRONIDAZOLE500 MG ORAL (08:33)
[2017-05-12] MEDS ORDERED: CIPROFLOXACIN500 M2 ORAL (08:33)
[2017-05-12] MEDS ORDERED: BENTYL10 MG ORAL (08:33)
[2017-05-12] MEDS ORDERED: ZANTAC150 MG ORAL (08:33)
[2017-05-12 08:58] VITALS: BP 122/89
[2017-05-12 09:01] VITALS: BP 122/89
== END 2017-05-12 09:01 | disposition home or self-care (01) ==
LOC: EMR 07:36
DX: K52.9 Noninfective gastroenteritis and colitis, unspecified (principal); J45.909 Unspecified asthma, uncomplicated; Z88.0 Allergy status to penicillin
CPT/HCPCS: 36415; 80053; 83690; 85025; 96361; 96374; 96375; 99284; J2405; S0028

== ENCOUNTER 2017-07-31 09:57 | Emergency (ER) | payer OTHER ==
[~2017-07-31] VITALS: Ht 180.3 cm; Wt 82.6 kg
[~2017-07-31 09:57] MED LIST changes: +ZANTAC150 MG ORAL
[2017-07-31] MEDS ORDERED: ALBUTEROL SULF8.5 GM INH (10:09)
[2017-07-31] MEDS ORDERED: IBUPROFEN600 MG ORAL (10:30)
[2017-07-31] MEDS ORDERED: AZITHROMYCIN500 MG ORAL (10:30)
[2017-07-31 10:37] VITALS: BP_SYST 112; BP_SYST 120; BP_DIAS 76; BP_DIAS 80
--- NOTE | 2017-07-31 12:35 | Emergency Room Report ---
History of Present Illness General Chief Complaint: Sore Throat Source: Patient Present Illness HPI 32-year-old male presents with sore throat for one week States sore throat, +mild dry cough. Pain with swallowing however has still been able to eat/drink. No change in voice. No pain with extension/movement of neck. Denies fever or chills. No sick contacts. Allergies: Coded Allergies: PENICILLINS (Unverified Allergy, Unknown, 12/08/14) Patient History Past Medical History: see triage record Past Surgical History: none Pertinent Family History: none Reviewed Nursing Documentation: PMH: Agreed, PSxH: Agreed Nursing Documentation-PMH Past Medical History: No History, Except For Hx Hypertension: No Hx Pacemaker: No Hx Asthma: Yes Hx COPD: No Hx Diabetes: No Hx Cancer: No Hx Gastrointestinal Problems: No Hx Dialysis: No History Of Psychiatric Problem: No Hx Neurological Problems: No Hx Cerebrovascular Accident: No Hx Seizures: No Review of Systems All Other Systems: negative except mentioned in HPI Physical Exam Vital Signs Date Time Temp Pulse Resp B/P (MAP) Pulse Ox O2 Delivery O2 Flow Rate FiO2 07/31/17 10:05 98.2 79 14 112/76 100 Room Air Sp02 EP Interpretation: reviewed, normal General Appearance: normal inspection, well appearing, no apparent distress, alert, GCS 15, non-toxic Head: normocephalic, atraumatic Eyes: bilateral eye normal inspection, bilateral eye PERRL, bilateral eye EOMI ENT: uvula midline, tonsillar swelling, tonsillar exudate, 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 Neck: normal inspection, full range of motion, supple Respiratory: normal inspection, lungs clear, normal breath sounds, no respiratory distress, no retraction, no wheezing, speaking full sentences, chest symmetrical Cardiovascular #1: normal inspection, regular rate, rhythm, no edema, normal capillary refill Cardiovascular #2: 2+ radial (R), 2+ radial (L) Gastrointestinal: normal inspection, non tender, soft, non-distended, no guarding Genitourinary: no CVA tenderness Musculoskeletal: normal inspection, back normal, normal range of motion, non- tender Neurologic: normal inspection, alert, oriented x3, responsive, motor strength/ tone normal, sensory intact, normal gait, speech normal Psychiatric: normal inspection, judgement/insight normal, memory normal Skin: normal inspection, normal color, no rash, warm/dry, well hydrated, normal turgor Medical Decision Making Diagnostic Impression: Primary Impression: Tonsillitis ER Course 32-year-old male with sore throat DDX: Viral vs. infectious mononucleosis vs. bacterial pharyngitis vs. allergies Other serious causes such as MANAGED SERVICES CONSULTANT / RPA / deep space neck infection history/physical most consistent with bacterial pharyngitis Plan: None in the emergency room ER course: Patient remains stable in ED. Disposition: Patient will be discharged to home. Azithromycin and Motrin given, patient is allergic to penicillin Patient will follow up with primary care doctor within 5 days. Strict return precautions discussed with patient such as worsening throat pain/swelling, dysphagia, high fever or chills, shortness of breath, abdominal pain, which may indicate severe illness. Patient verbalized understanding and agreed with plan. Please note that this Emergency Department Report was dictated using DHgat[employer]psych[employer] division chief technology software, occasionally this can lead to erroneous entry secondary to interpretation by the dictation equipment. Last Vital Signs Date Time Temp Pulse Resp B/P (MAP) Pulse Ox O2 Delivery O2 Flow Rate FiO2 07/31/17 10:37 98.2 14 112/76 100 Room Air 07/31/17 10:05 79 Disposition: HOME, SELF-CARE Condition: Improved Scripts Azithromycin (AZITHROMYCIN) 500 Mg Tablet 500 MG ORAL DAILY for 5 Days, #5 TAB 0 Refills Prov: Matty Butts M.D. 07/31/17 Ibuprofen* (MOTRIN*) 600 Mg Tablet 600 MG ORAL Q8H Y for For Pain, #30 TAB 0 Refills Prov: Matty Butts M.D. 07/31/17 Referrals: NOT CHOSEN [facility]/,REFERRING Patient Instructions: Tonsillitis Matty Butts M.D. Jul 31, 2017 12:35
== END 2017-07-31 10:52 | disposition home or self-care (01) ==
LOC: EMR 10:26
DX: J03.90 Acute tonsillitis, unspecified (principal); J45.909 Unspecified asthma, uncomplicated; Z88.0 Allergy status to penicillin
CPT/HCPCS: 99283

== ENCOUNTER 2017-09-08 12:21 | Emergency (ER) | payer OTHER ==
[~2017-09-08] VITALS: Ht 180.3 cm; Wt 81.6 kg
[~2017-09-08 12:21] MED LIST changes: +AZITHROMYCIN500 MG ORAL
[2017-09-08 12:34] VITALS: BP 119/77
[2017-09-08] MEDS ORDERED: Ketorolac 30mg Inj IM ONE (13:00)
[2017-09-08] MEDS ORDERED: Dexamethasone 4mg/ml vial IM ONE (13:00)
--- NOTE | 2017-09-08 13:03 | Emergency Room Report ---
History of Present Illness General Chief Complaint: Sore Throat Source: Patient Present Illness HPI 32-year-old male presents with sore throat for 5 days. Patient was recently diagnosed with tonsillitis in the emergency room on August 31, states that he took antibiotics and felt much better, however symptoms returned again 5 days ago Complaining of some cough, runny nose Pain with swallowing however has still been able to eat/drink. No pain with extension/movement of neck. Allergies: Coded Allergies: PENICILLINS (Unverified Allergy, Unknown, 12/08/14) Patient History Past Medical History: see triage record Past Surgical History: none Pertinent Family History: none Reviewed Nursing Documentation: PMH: Agreed, PSxH: Agreed Nursing Documentation-PMH Past Medical History: No History, Except For Hx Hypertension: No Hx Pacemaker: No Hx Asthma: Yes Hx COPD: No Hx Diabetes: No Hx Cancer: No Hx Gastrointestinal Problems: No Hx Dialysis: No History Of Psychiatric Problem: Yes - Depression Hx Neurological Problems: No Hx Cerebrovascular Accident: No Hx Seizures: No Review of Systems All Other Systems: negative except mentioned in HPI Physical Exam Vital Signs Date Time Temp Pulse Resp B/P (MAP) Pulse Ox O2 Delivery O2 Flow Rate FiO2 09/08/17 12:25 97.7 83 16 117/77 96 Room Air 97.7 Sp02 EP Interpretation: reviewed, normal General Appearance: normal inspection, well appearing, no apparent distress, alert, GCS 15, non-toxic Head: normocephalic, atraumatic Eyes: bilateral eye normal inspection, bilateral eye PERRL, bilateral eye EOMI ENT: tonsillar swelling, pharyngeal erythema, other - no exudates Neck: normal inspection, full range of motion, supple Respiratory: normal inspection, lungs clear, normal breath sounds, no respiratory distress, no retraction, no wheezing, speaking full sentences, chest symmetrical Cardiovascular #1: normal inspection, regular rate, rhythm, no edema, normal capillary refill Cardiovascular #2: 2+ radial (R), 2+ radial (L) Gastrointestinal: normal inspection, non tender, soft, non-distended, no guarding Genitourinary: no CVA tenderness Musculoskeletal: normal inspection, back normal, normal range of motion, non- tender Neurologic: normal inspection, alert, oriented x3, responsive, motor strength/ tone normal, sensory intact, normal gait, speech normal Psychiatric: normal inspection, judgement/insight normal, memory normal Skin: normal inspection, normal color, no rash, warm/dry, well hydrated, normal turgor Medical Decision Making Diagnostic Impression: Primary Impression: Tonsillitis ER Course 32-year-old male with sore throat for 5 days DDX: Viral vs. infectious mononucleosis vs. bacterial pharyngitis vs. allergies Other serious causes such as SOLUTIONS DEVELOPER / RPA / deep space neck infection history/physical most consistent with viral pharyngitis Plan: Toradol and Decadron ER course: Patient remains stable in ED. Pt states improvement of pain Disposition: Patient will be discharged to home. Patient will follow up with primary care doctor and ENT in 5 days. Please note that this Emergency Department Report was dictated using [employer]os[employer]reach manager technology software, occasionally this can lead to erroneous entry secondary to interpretation by the dictation equipment. Last Vital Signs Date Time Temp Pulse Resp B/P (MAP) Pulse Ox O2 Delivery O2 Flow Rate FiO2 09/08/17 12:34 97.7 71 16 119/77 97 Room Air 97.7 Disposition: HOME, SELF-CARE Condition: Improved [facility]errals: [facility]ERR[facility] (PCP) Patient Instructions: Tonsillitis Additional Instructions: PLEASE SEE AN ENT DOCTOR IN 1 WEEK WITHOUT FAIL Matty Butts M.D. Sep 08, 2017 13:03
[2017-09-08 13:12] VITALS: BP 119/77
== END 2017-09-08 13:12 | disposition home or self-care (01) ==
LOC: EMR 12:54
DX: J03.90 Acute tonsillitis, unspecified (principal); J02.9 Acute pharyngitis, unspecified; J45.909 Unspecified asthma, uncomplicated; Z88.0 Allergy status to penicillin
CPT/HCPCS: 96372; 99283; J1100; J1885

== ENCOUNTER 2017-09-10 12:14 | Emergency (ER) | payer OTHER ==
[~2017-09-10] VITALS: Ht 180.3 cm; Wt 81.6 kg
[2017-09-10] MEDS ORDERED: UNOBMED (12:24)
[2017-09-10] MEDS ORDERED: Lidocaine 1% MPF 10mg/ml 5ml INJ ONE (13:00)
--- NOTE | 2017-09-10 13:05 | Emergency Room Report ---
History of Present Illness General Chief Complaint: Sore Throat Source: Patient Present Illness HPI 32-year-old male presents to the emergency department complaining of persistent/ continued sore throat with tonsillar swelling for over one week. Patient has been seen twice here within the past 2 weeks for his symptoms initially he was prescribed azithromycin and and conservative treatment he continues to return with no improvement of his symptoms. He denies fevers or chills reports history of HIV states that his CD4 count is well above 500 he states his viral load is undetectable. Patient reports some nasal congestion and rhinorrhea. denies cough. Denies CP, Palpitations, LOC, AMS, dizziness, Changes in Vision, Sensation, paresthesias, or a sudden severe headache. Allergies: Coded Allergies: PENICILLINS (Unverified Allergy, Unknown, 12/08/14) Patient History Past Medical History: see triage record, HIV Past Surgical History: none Pertinent Family History: none Immunizations: UTD Reviewed Nursing Documentation: PMH: Agreed, PSxH: Agreed Nursing Documentation-PMH Hx Asthma: Yes Review of Systems All Other Systems: negative except mentioned in HPI Physical Exam Vital Signs Date Time Temp Pulse Resp B/P (MAP) Pulse Ox O2 Delivery O2 Flow Rate FiO2 09/10/17 12:21 98.4 96 16 149/73 98 Room Air 98.4 Sp02 EP Interpretation: reviewed, normal General Appearance: no apparent distress, alert, GCS 15, non-toxic Head: normocephalic, atraumatic Eyes: bilateral eye normal inspection, bilateral eye PERRL ENT: hearing grossly normal, normal voice, TMs + canals normal, nasal congestion, pharyngeal erythema, other - scant tonsillar exudates, cobble stone appearance of the pharynx. Neck: full range of motion, no meningismus, no bony tend Respiratory: chest non-tender, lungs clear, normal breath sounds, speaking full sentences Cardiovascular #1: regular rate, rhythm Musculoskeletal: back normal, gait/station normal, normal range of motion Neurologic: alert, oriented x3, responsive, motor strength/tone normal, sensory intact, speech normal, grossly normal Psychiatric: judgement/insight normal Skin: normal color, no rash, warm/dry, well hydrated Lymphatic: no adenopathy Medical Decision Making PA Attestation Dr. Butts is my supervising Physician whom patient management has been discussed with. Diagnostic Impression: Primary Impression: Pharyngitis Qualified Codes: A54.5 - Gonococcal pharyngitis ER Course 32-year-old male presents to the emergency department complaining of persistent/ continued sore throat with tonsillar swelling for over one week. Patient has been seen twice here within the past 2 weeks for his symptoms initially he was prescribed azithromycin and and conservative treatment he continues to return with no improvement of his symptoms. He denies fevers or chills reports history of HIV states that his CD4 count is well above 500 he states his viral load is undetectable. Patient reports some nasal congestion and rhinorrhea. denies cough. Denies CP, Palpitations, LOC, AMS, dizziness, Changes in Vision, Sensation, paresthesias, or a sudden severe headache. HIV Pos. CD4 above 500, Viral Load of Zero at last visit with PMD. Ddx considered but are not limited to: pharyngitis, strep, PEDIATRIC DENTAL HYGIENIST, ludwigs angina, URI, PND Vital signs: are WNL, pt. is afebrile H&PE are most consistent with: pharyngitis presumed gonococcal as previous abx azithromycin and conservative treatment not helping. ORDERS: None required at this time as the diagnosis is clinical ED INTERVENTIONS: -250mg Rocephin IM d/w pt. that it is imperative that he follow up with ENT specialist and his PCP if symptoms are persistent. d/w pt. that allergies/PND maybe the cause or effects of HIV such as HIV esophagitis. DISCHARGE: At this time pt. is stable for d/c to home. Will provide printed patient care instructions, and any necessary prescriptions. Care plan and follow up instructions have been discussed with the patient prior to discharge. Last Vital Signs Date Time Temp Pulse Resp B/P (MAP) Pulse Ox O2 Delivery O2 Flow Rate FiO2 09/10/17 12:21 98.4 96 16 149/73 98 Room Air 98.4 Disposition: HOME, SELF-CARE Condition: Stable Scripts Loratadine/Pseudoephedrine (CLARITIN-D 12 HOUR TABLET) 1 Each Tab.er.12h 1 TAB ORAL EVERY 12 HOURS for 5 Days, #10 TAB Prov: Jennifer Vieyra 09/10/17 Referrals: [facility] (PCP) Patient Instructions: Sore Throat Additional Instructions: Take medications as directed. Follow up with an ENT SPECIALIST in 3-5 days, even if your symptoms have resolved. --Please review list of primary care clinics, if you do not already have a primary care provider Return sooner to ED if new symptoms occur, or current symptoms become worse. - Please note that this Emergency Department Report was dictated using [employer] Brewinggeomagnetician technology software, occasionally this can lead to erroneous entry secondary to interpretation by the dictation equipment. Jennifer Vieyra Sep 10, 2017 13:04
[2017-09-10] MEDS ORDERED: CLARITIN-D 121 EAC1 ORAL (13:07)
[2017-09-10 13:09] VITALS: BP 149/73
[2017-09-10 13:24] VITALS: BP 133/79
[2017-09-10 13:25] VITALS: BP 133/79
== END 2017-09-10 13:25 | disposition home or self-care (01) ==
LOC: MERGE 12:14 → EMR 12:45
DX: J02.9 Acute pharyngitis, unspecified (principal); Z88.0 Allergy status to penicillin; J45.909 Unspecified asthma, uncomplicated
CPT/HCPCS: 99283; J0696

== ENCOUNTER 2017-10-21 16:18 | Emergency (ER) | payer OTHER ==
[~2017-10-21] VITALS: Ht 180.3 cm; Wt 81.6 kg
[~2017-10-21 16:18] MED LIST changes: +CLARITIN-D 121 EAC1 ORAL; +UNOBMED
[2017-10-21 16:41] VITALS: BP 126/78
[2017-10-21] MEDS ORDERED: CYCLOBENZAPRINE10 MG ORAL (17:28)
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
[2017-10-21 18:00] VITALS: BP_SYST 126; BP_SYST 131; BP_DIAS 77; BP_DIAS 78
== END 2017-10-21 18:00 | disposition home or self-care (01) ==
LOC: EMR 17:00
DX: S06.0X0A Concussion without loss of consciousness, initial encounter (principal); V43.62XA Car passenger injured in collision with other type car in traffic accident, initial encounter; Y92.410 Unspecified street and highway as the place of occurrence of the external cause; J45.909 Unspecified asthma, uncomplicated; Z88.0 Allergy status to penicillin
CPT/HCPCS: 99283

== ENCOUNTER 2017-11-11 15:37 | Emergency (ER) | payer OTHER ==
[~2017-11-11] VITALS: Ht 180.3 cm; Wt 79.4 kg
[~2017-11-11 15:37] MED LIST changes: +CYCLOBENZAPRINE10 MG ORAL
[2017-11-11] MEDS ORDERED: VITAMIN D1000 UNI1 ORAL (15:47)
[2017-11-11 15:48] VITALS: BP 116/78
[2017-11-11] MEDS: Albuterol/Ipratropium 3ml neb HHN ONE ×2 (16:45→17:23)
--- NOTE | 2017-11-11 17:20 | Emergency Room Report ---
History of Present Illness General Chief Complaint: General Complaint Source: Patient Present Illness HPI 32-year-old male presents to the emergency department complaining of persistent cough 2 weeks with increased sputum that he is unable to clear easily from his throat. Patient reports history of asthma and has had increases in wheezing. Patient states that he uses his inhaler every once in a while if his symptoms are really bad but not consistently throughout the day. He denies fevers, chills, nausea or vomiting he reports 3 episodes of loose stools he denies blood in the stools or black tarry stool. Denies abdominal tenderness. Pt. reports regularly having GI symptoms due to medications. Patient is HIV positive he states his last CD4 count is well above 500, and viral load is undetectable. He denies recent travel or ill contacts. Reports some nasal congestion denies sore throat or ear pain. Denies neck pain or stiffness. Denies CP, Palpitations, LOC, AMS, dizziness, Changes in Vision, Sensation, paresthesias, or a sudden severe headache. Allergies: Coded Allergies: PENICILLINS (Unverified Allergy, Unknown, 12/08/14) Patient History Past Medical History: see triage record, HIV Past Surgical History: none Pertinent Family History: none Immunizations: UTD Reviewed Nursing Documentation: PMH: Agreed; PSxH: Agreed Nursing Documentation-PMH Hx Hypertension: No Hx Pacemaker: No Hx Asthma: Yes Hx COPD: No Hx Diabetes: No Hx Cancer: No Hx Gastrointestinal Problems: No Hx Dialysis: No Hx Neurological Problems: No Hx Cerebrovascular Accident: No Hx Seizures: No Review of Systems All Other Systems: negative except mentioned in HPI Physical Exam Vital Signs Date Time Temp Pulse Resp B/P (MAP) Pulse Ox O2 Delivery O2 Flow Rate FiO2 11/11/17 15:42 98.0 79 17 116/78 99 Room Air 98.1 Sp02 EP Interpretation: reviewed, normal General Appearance: no apparent distress, alert, GCS 15, non-toxic Head: normocephalic, atraumatic Eyes: bilateral eye normal inspection, bilateral eye PERRL ENT: hearing grossly normal, normal pharynx, normal voice, TMs + canals normal , uvula midline, moist mucus membranes, nasal congestion Neck: full range of motion, no meningismus, no bony tend Respiratory: chest non-tender, lungs clear, normal breath sounds, no rhonchi, no respiratory distress, speaking full sentences, wheezing - scant expiratory bilat Cardiovascular #1: regular rate, rhythm, normal capillary refill Gastrointestinal: normal bowel sounds, non tender, soft, no guarding Rectal: deferred Musculoskeletal: back normal, gait/station normal, normal range of motion, non- tender Neurologic: alert, oriented x3, responsive, motor strength/tone normal, sensory intact, speech normal, grossly normal Psychiatric: judgement/insight normal Skin: normal color, no rash, warm/dry, well hydrated Lymphatic: no adenopathy Medical Decision Making PA Attestation Dr. Diego is my supervising Physician whom patient management has been discussed with. Diagnostic Impression: Primary Impression: Asthmatic bronchitis Qualified Codes: J45.21 - Mild intermittent asthma with (acute) exacerbation Additional Impression: Diarrhea Qualified Codes: R19.7 - Diarrhea, unspecified ER Course 32-year-old male presents to the emergency department complaining of persistent cough 2 weeks with increased sputum that he is unable to clear easily from his throat. Patient reports history of asthma and has had increases in wheezing. Patient states that he uses his inhaler every once in a while if his symptoms are really bad but not consistently throughout the day. He denies fevers, chills, nausea or vomiting he reports 3 episodes of loose stools he denies blood in the stools or black tarry stool. Patient is HIV positive he states his last CD4 count is well above 500, and viral load is undetectable. He denies recent travel or ill contacts. Reports some nasal congestion denies sore throat or ear pain. Denies neck pain or stiffness. Denies CP, Palpitations , LOC, AMS, dizziness, Changes in Vision, Sensation, paresthesias, or a sudden severe headache. Ddx considered but are not limited to asthma exacerbation, CHF, URI, pneumonia, PE, strep pharyngitis, meningitis. Vital signs: Pt. is afebrile, VS are WNL H&PE are most consistent with bronchitis / asthma exacerbation. Pt. is well hydrated, no evidence of acute abdomen or infectious process at this time. ORDERS: none required at this time, the diagnosis is clinical ED INTERVENTIONS: -DUO NEBS treatment. - re-examination post nebulized treatment lungs are CTA bilaterally. DISCHARGE: At this time pt. is stable for d/c to home. Will provide printed patient care instructions, and any necessary prescriptions. Care plan and follow up instructions have been discussed with the patient prior to discharge. Last Vital Signs Date Time Temp Pulse Resp B/P (MAP) Pulse Ox O2 Delivery O2 Flow Rate FiO2 11/11/17 15:48 98.1 79 17 116/78 99 Room Air 98.1 Disposition: HOME, SELF-CARE Condition: Stable Scripts Benzonatate* (TESSALON PERLE*) 100 Mg Capsule 100 MG ORAL THREE TIMES A DAY for 7 Days, #21 PERLE Prov: Jennifer Vieyra. 11/11/17 Albuterol Sulfate* (ALBUTEROL SULFATE MDI*) 8.5 Gm Hfa.aer.ad 2 PUFF INH Q3H, #1 INH 0 Refills Prov: Jennifer Vieyra 11/11/17 Guaifenesin (Guaifenesin) 1,200 Mg Tab.er.12h 1200 MG PO BID, #20 TAB Prov: Jennifer Vieyra 11/11/17 Loratadine/Pseudoephedrine (CLARITIN-D 12 HOUR TABLET) 1 Each Tab.er.12h 1 TAB ORAL EVERY 12 HOURS for 7 Days, #14 TAB Prov: Jennifer Vieyra. 11/11/17 Referrals: [facility] (PCP) Patient Instructions: Acute Bronchitis, [id number], Asthma, Adult, Easy-to- Read Additional Instructions: Take medications as directed. Follow up with a Primary Care Provider in 3-5 days, even if your symptoms have resolved. PULMONOLOGY EVAL --Please review list of primary care clinics, if you do not already have a primary care provider Return sooner to ED if new symptoms occur, or current symptoms become worse. - Please note that this Emergency Department Report was dictated using [employer]rigger Mediawater purifier technology software, occasionally this can lead to erroneous entry secondary to interpretation by the dictation equipment. Jennifer Vieyra November 11, 2017 17:20
[2017-11-11] MEDS ORDERED: CLARITIN-D 121 EAC1 ORAL (17:22)
[2017-11-11] MEDS ORDERED: TESSALON PERLE100 MG ORAL (17:22)
[2017-11-11] MEDS ORDERED: ALBUTEROL SULF8.5 GM INH (17:22)
[2017-11-11] MEDS ORDERED: GUAIFENESIN1200 MG PO (17:22)
[2017-11-11 17:35] VITALS: BP 118/75
[2017-11-11 17:36] VITALS: BP 118/75
== END 2017-11-11 17:37 | disposition home or self-care (01) ==
LOC: EMR 16:38
DX: J45.909 Unspecified asthma, uncomplicated (principal); R19.7 Diarrhea, unspecified; Z88.0 Allergy status to penicillin
CPT/HCPCS: 94640; 94664; 99284; J7620

== ENCOUNTER 2017-12-11 14:35 | Emergency (ER) | payer OTHER ==
[~2017-12-11] VITALS: Ht 180.3 cm; Wt 77.1 kg
[~2017-12-11 14:35] MED LIST changes: +GUAIFENESIN1200 MG PO; +TESSALON PERLE100 MG ORAL; +VITAMIN D1000 UNI1 ORAL
--- NOTE | 2017-12-11 15:04 | Emergency Room Report ---
History of Present Illness General Chief Complaint: Abdominal Pain Present Illness HPI 32-year-old male patient presents ER complaining of intermittent painful urination for the past week. Patient denies recent sexual activity, states last sexual activity was a month ago, states he was wearing protection. does not know STI status of sexual partner, partner was HIV positive. also complains of suprapubic pain and diarrhea during this time. Denies blood in diarrhea. Denies other acute symptoms. denies fever, chest pain or shortness breath. Denies recent travel or antibiotic use. Patient reports history of HIV. reports labs normal, viral load undetectable. denies history of kidney stones. Allergies: Coded Allergies: PENICILLINS (Unverified Allergy, Unknown, 12/08/14) Patient History Past Medical History: see triage record Reviewed Nursing Documentation: PMH: Agreed; PSxH: Agreed Nursing Documentation-PMH Hx Hypertension: No Hx Pacemaker: No Hx Asthma: Yes Hx COPD: No Hx Diabetes: No Hx Cancer: No Hx Gastrointestinal Problems: No Hx Dialysis: No Hx Neurological Problems: No Hx Cerebrovascular Accident: No Hx Seizures: No Review of Systems All Other Systems: negative except mentioned in HPI Physical Exam Vital Signs Date Time Temp Pulse Resp B/P (MAP) Pulse Ox O2 Delivery O2 Flow Rate FiO2 12/11/17 14:57 98.1 87 20 112/75 99 Room Air 98.1 Sp02 EP Interpretation: reviewed, normal General Appearance: well appearing, no apparent distress, alert, GCS 15, non- toxic Head: normocephalic, atraumatic Eyes: bilateral eye normal inspection, bilateral eye PERRL ENT: hearing grossly normal, normal pharynx, no angioedema, normal voice, uvula midline, moist mucus membranes Neck: full range of motion Respiratory: lungs clear, normal breath sounds, no rhonchi, no respiratory distress, no accessory muscle use, no wheezing, speaking full sentences Cardiovascular #1: regular rate, rhythm, no edema Gastrointestinal: normal bowel sounds, soft, no mass, non-distended, no guarding, no rebound, tenderness - suprapubic, other - negative Rovsing, negative Uriostegui, negative obturator Rectal: deferred Genitourinary: no vertebral tenderness Musculoskeletal: back normal, digits/nails normal, gait/station normal, normal range of motion, non-tender Neurologic: alert, oriented x3, responsive, motor strength/tone normal, sensory intact Psychiatric: mood/affect normal Skin: no rash Lymphatic: no adenopathy Medical Decision Making PA Attestation Dr. Diego is my supervising Physician whom patient management has been discussed with. Diagnostic Impression: Primary Impression: Dysuria Additional Impression: Diarrhea ER Course Pt presents to ED c/o urinary symptoms. DDX considered but are not limited to cystitis, pyelonephritis, STI, gastritis, enteritis, viral syndrome. most patient for kidney stones, patient denies flank pain, vomiting, history of kidney symptoms, does not require labs or imaging at this time. VITAL SIGNS are WNL, patient is afebrile. Ordered UA. ER COURSE UA results show no nitrites, no leukocyte esterase, 0-2 WBCs, low suspicion for UTI, does not require treatment with antibiotics at this time. If concern for STI, followup with STI clinic for testing and treatment. Denies STI concern. reports has appointment with PCP tomorrow, STI clinic at same office, will have repeat labs STI testing done at that time. discuss further treatment and referral to urology, discuss possible prostate workup at that time. Denies difficulty starting or stopping stream, denies new- onset flank or back pain, does not require imaging or labs at this time. Abdominal pain likely related to diarrhea symptoms. Patient informed of likely viral cause of symptoms. No fever, no blood in stool, no recent travel or hospitalizations, does not require abx treatment at this time. No signs of dehydration, moist mucus membranes. Patient reports eating and drinking normally. Advised patient on BRAT : bananas, rice, apple sauce, toast. Patient is resting comfortably in room, nontoxic appearing, in no acute distress , walking and talking without difficulty. Patient states they feel better and is ready to go home. DISCHARGE -Rx provided for Tylenol. informed patient Tylenol easier on GI tract than ibuprofen/Motrin. Patient is stable for discharge. Patient resting comfortably, in no acute distress, nontoxic appearing, talking without difficulty. Will provide with patient care instructions and any necessary prescriptions. Patient understands and agrees to treatment plan. Patient encouraged to drink plenty of fluids. Patient to take medication as instructed. Care plan and follow-up instructions provided. Patient questions asked and answered. Reports understanding and agreement to treatment plan. Patient instructed to follow-up with primary care provider in 3 - 5 days. ER precautions given. Patient instructed to return to ER immediately for any new or worsening of symptoms. Including but not limited to fever, abdominal pain , intractable vomiting. - Please note that this Emergency Department Report was dictated using [employer] office supervisor technology software, occasionally this can lead to erroneous entry secondary to interpretation by the dictation equipment. Labs Test 12/11/17 15:10 Urine Color Pale yellow Urine Appearance Clear Urine pH 7 (4.5-8.0) Urine Specific [place] 1.010 (1.005-1.035) Urine Protein Negative (NEGATIVE) Urine Glucose (UA) Negative (NEGATIVE) Urine Ketones Negative (NEGATIVE) Urine Occult Blood Negative (NEGATIVE) Urine Nitrite Negative (NEGATIVE) Urine Bilirubin Negative (NEGATIVE) Urine Urobilinogen 1 MG/DL (0.0-1.0) Urine Leukocyte Esterase Negative (NEGATIVE) Urine RBC 0-2 /HPF (0 - 0) Urine WBC 0-2 /HPF (0 - 0) Urine Squamous Epithelial Cells None /LPF (NONE/OCC) Urine Bacteria None /HPF (NONE) Last Vital Signs Date Time Temp Pulse Resp B/P (MAP) Pulse Ox O2 Delivery O2 Flow Rate FiO2 12/11/17 14:57 98.1 87 20 112/75 99 Room Air 98.1 Disposition: HOME, SELF-CARE Condition: Stable Scripts Acetaminophen* (TYLENOL EXTRA STRENGTH*) 500 Mg Tablet 500 MG ORAL Q8H PRN for Prn Headache/Temp > 101, #30 TAB 0 Refills Prov: Shashank Diamond 12/11/17 Patient Instructions: Diarrhea, Adult, [id number], Dysuria, Food Choices to Help Relieve Diarrhea, Adult Additional Instructions: Followup with primary care provider at scheduled appointment tomorrow and discuss followup with specialist. Drink plenty of fluids. Follow-up with STI clinic for STI testing and treatment as needed. Take medications as directed. Patient questions asked and answered. ER precautions given, patient instructed to return to ER immediately for any new or worsening of symptoms. Avoid spicy foods, avoid dairy foods. BRAT diet: bananas, rice, apple sauce, toast. Shashank Diamond December 11, 2017 15:04
[2017-12-11 15:16] VITALS: BP 112/75
[2017-12-11 15:26] LABS: APPEARANCE,URINE CLEAR; BILIRUBIN, URINE NEGATIVE (NEGATIVE); COLOR,URINE PALE YELLOW; GLUCOSE, URINE (UA) NEGATIVE (NEGATIVE); KETONES,URINE NEGATIVE (NEGATIVE); LEUKOCYTE ESTERASE ,URINE NEGATIVE (NEGATIVE); NITRITE,URINE NEGATIVE (NEGATIVE); PH,URINE 7 (4.5-8.0); PROTEIN,URINE NEGATIVE (NEGATIVE); UROBILINOGEN,URINE 1 MG/DL (0.0-1.0)
[2017-12-11] MEDS ORDERED: TYLENOL EXTRA500 MG ORAL (16:12)
[2017-12-11 16:25] VITALS: BP 112/75
== END 2017-12-11 16:27 | disposition home or self-care (01) ==
LOC: EMR 15:12
DX: R30.0 Dysuria (principal); R19.7 Diarrhea, unspecified; J45.909 Unspecified asthma, uncomplicated; Z88.0 Allergy status to penicillin
CPT/HCPCS: 81001; 99283

== ENCOUNTER 2018-01-12 12:05 | Emergency (ER) | payer OTHER ==
[~2018-01-12] VITALS: Ht 180.3 cm; Wt 77.1 kg
--- NOTE | 2018-01-12 12:22 | Emergency Room Report ---
History of Present Illness General Chief Complaint: Asthma Source: Patient, Medical Record Present Illness HPI 32-year-old male patient since the ER complaining of shortness of breath 1 week. Reports history of asthma. Reports has been using inhaler with mild relief of symptoms. Reports symptoms worsen night. Denies cough. Denies hemoptysis. Denies calf pain. Denies recent periods of immobilization. Denies history of [place] or heart disease. Denies chest pain, abdominal pain, vomiting, fever. Denies neck pain or stiffness. Hx of HIV, viral load undetectable, CD4 is elevated to normal range. Denies contacts with similar symptoms. Denies recent travel. Allergies: Coded Allergies: PENICILLINS (Unverified Allergy, Unknown, 12/08/14) Patient History Past Medical History: see triage record Reviewed Nursing Documentation: PMH: Agreed; PSxH: Agreed Nursing Documentation-PMH Hx Hypertension: No Hx Pacemaker: No Hx Asthma: Yes Hx COPD: No Hx Diabetes: No Hx Cancer: No Hx Gastrointestinal Problems: No Hx Dialysis: No Hx Neurological Problems: No Hx Cerebrovascular Accident: No Hx Seizures: No Review of Systems All Other Systems: negative except mentioned in HPI Physical Exam Vital Signs Date Time Temp Pulse Resp B/P (MAP) Pulse Ox O2 Delivery O2 Flow Rate FiO2 01/12/18 12:11 97.5 86 18 118/79 98 Room Air 97.5 Sp02 EP Interpretation: reviewed, normal General Appearance: well appearing, no apparent distress, alert, GCS 15, non- toxic Head: normocephalic, atraumatic Eyes: bilateral eye normal inspection, bilateral eye PERRL ENT: hearing grossly normal, normal pharynx, no angioedema, normal voice, uvula midline, moist mucus membranes Neck: full range of motion Respiratory: lungs clear, no rhonchi, no respiratory distress, no accessory muscle use, no wheezing, decreased breath sounds, speaking full sentences Cardiovascular #1: regular rate, rhythm, no edema Musculoskeletal: back normal, digits/nails normal, gait/station normal, normal range of motion, non-tender, no calf tenderness, Melisa's Sign negative Neurologic: alert, oriented x3, responsive, motor strength/tone normal, sensory intact Skin: no rash Medical Decision Making PA Attestation Dr. Diego is my supervising Physician whom patient management has been discussed with. Diagnostic Impression: Primary Impression: Asthma ER Course Pt presents to ED c/o asthma symptoms. DDX considered but are not limited to asthma, viral URI, influenza, bronchitis. VITAL SIGNS are WNL, patient is afebrile. Ordered breathing treatment and medication. ER COURSE Patient provided with prednisone in ER. Albuterol/Atrovent breathing treatment provided. Following treatment patient states no longer having difficulty with breathing. Patient is resting comfortably in no acute distress. chest x-ray negative for acute disease, no consolidation, patient afebrile, low suspicion for pneumonia. Follow-up with PCP to discuss further treatment and referral for asthma symptoms due to history of asthma symptoms. DISCHARGE: -Rx provided for Albuterol MDI. At this time pt is stable for d/c to home. Patient is resting comfortably in no acute distress, nontoxic appearing, able to answer questions without difficulty. Patient to take medications as instructed Will provide with patient care instructions and any necessary prescriptions. Care plan and follow-up instructions provided. Patient instructed to follow-up with primary care provider in 3 - 5 days. Patient questions asked and answered. Patient reports understanding and agreement to treatment plan. ER precautions given. Patient instructed to return to ER immediately for any new or worsening of symptoms including but not limited to increasing SOB, persistent fever. - Please note that this Emergency Department Report was dictated using [employer] secretary/transcriptionist technology software, occasionally this can lead to erroneous entry secondary to interpretation by the dictation equipment. Chest X-Ray Diagnostic Results Chest X-Ray Diagnostic Results : Chest X-Ray Ordered: Yes # of Views/Limited/Complete: 1 View Indication: Chest Pain EP Interpretation: Yes PA Xray: Interpretation reviewed, by supervising MD, and agrees with findings. Interpretation: no consolidation, no effusion, no pneumothorax, no acute cardiopulmonary disease Impression: No acute disease PA Scribe Text Vernon Diamond PA-C Last Vital Signs Date Time Temp Pulse Resp B/P (MAP) Pulse Ox O2 Delivery O2 Flow Rate FiO2 01/12/18 12:11 97.5 86 18 118/79 98 Room Air 97.5 Status: improved Disposition: HOME, SELF-CARE Condition: Stable Scripts Albuterol Sulfate* (ALBUTEROL SULFATE MDI*) 8.5 Gm Hfa.aer.ad 2 PUFF INH Q6H, #1 INH 0 Refills Prov: Shashank Diamond 01/12/18 Patient Instructions: Asthma, Adult Additional Instructions: Followup with primary care provider in 3 -5 days. Take medications as directed. Patient questions asked and answered. ER precautions given, patient instructed to return to ER immediately for any new or worsening of symptoms. Shashank Diamond Jan 12, 2018 12:22
[2018-01-12] MEDS ORDERED: Albuterol/Ipratropium 3ml neb HHN ONE (12:30)
[2018-01-12 12:42] VITALS: BP 117/80
[2018-01-12] MEDS ORDERED: ALBUTEROL SULF8.5 GM INH (12:56)
[2018-01-12 12:57] VITALS: BP 117/80
--- NOTE | 2018-01-12 13:54 | Diagnostic Imaging Report ---
Indication: Chest pain Comparison: 12/25/2015 A single view chest radiograph was obtained. Findings: Cardiomediastinal appearance is within normal limits for age. Pulmonary vascularity is appropriate. The diaphragmatic contour is smooth and costophrenic angles are sharp. No pleural effusions are identified. The bones are unremarkable. Impression: No acute findings
== END 2018-01-12 13:45 | disposition home or self-care (01) ==
LOC: EMR 12:50
DX: J45.909 Unspecified asthma, uncomplicated (principal); Z88.0 Allergy status to penicillin
CPT/HCPCS: 71045; 94640; 94760; 99283; J7512; J7620

== ENCOUNTER 2018-02-17 11:51 | Emergency (ER) | payer OTHER ==
[~2018-02-17] VITALS: Ht 180.3 cm; Wt 72.6 kg
[2018-02-17 12:02] VITALS: BP 109/78
--- NOTE | 2018-02-17 12:27 | Emergency Room Report ---
History of Present Illness General Chief Complaint: Upper Respiratory Illness Source: Patient, Medical Record Present Illness HPI 32-year-old male patient presents ER complaining of asthma symptoms for the past few weeks. Reports previously seen in the ER for similar symptoms. Reports symptoms briefly results and since that time however symptoms have returned. Reports that he saw his primary care provider last week was prescribed a new inhaler, does not know name, however states that new inhalers not working. Reports no fever. Reports previously treated with prednisone which helped alleviate his symptoms. Reports history of HIV, viral load undetectable, left was normal. Denies other acute symptoms. Reports history of allergies. denies chest pain, abdominal pain, dysuria, hematuria. Allergies: Coded Allergies: PENICILLINS (Unverified Allergy, Unknown, 12/08/14) Patient History Past Medical History: see triage record Reviewed Nursing Documentation: PMH: Agreed; PSxH: Agreed Nursing Documentation-PMH Past Medical History: No History, Except For Hx Hypertension: No Hx Pacemaker: No Hx Asthma: Yes Hx COPD: No Hx Diabetes: No Hx Cancer: No Hx Gastrointestinal Problems: No Hx Dialysis: No Hx Neurological Problems: No Hx Cerebrovascular Accident: No Hx Seizures: No Review of Systems All Other Systems: negative except mentioned in HPI Physical Exam Vital Signs Date Time Temp Pulse Resp B/P (MAP) Pulse Ox O2 Delivery O2 Flow Rate FiO2 02/17/18 11:58 97.9 84 18 109/78 96 Room Air 97.9 Sp02 EP Interpretation: reviewed, normal General Appearance: well appearing, no apparent distress, alert, GCS 15, non- toxic Head: normocephalic, atraumatic Eyes: bilateral eye normal inspection, bilateral eye PERRL ENT: hearing grossly normal, normal pharynx, no angioedema, normal voice, uvula midline, moist mucus membranes Neck: full range of motion Respiratory: lungs clear, no rhonchi, no respiratory distress, no accessory muscle use, no wheezing, decreased breath sounds, speaking full sentences Cardiovascular #1: regular rate, rhythm, no edema Musculoskeletal: back normal, digits/nails normal, gait/station normal, normal range of motion, non-tender, no calf tenderness, Melisa's Sign negative Neurologic: alert, oriented x3, responsive, motor strength/tone normal, sensory intact Psychiatric: mood/affect normal Skin: no rash Medical Decision Making PA Attestation Dr. Pineda is my supervising Physician whom patient management has been discussed with.Dr. Pineda is my supervising Physician whom patient management has been discussed with. Diagnostic Impression: Primary Impression: Asthma attack ER Course Pt presents to ED c/o asthma symptoms. DDX considered but are not limited to asthma, viral URI, influenza, bronchitis. Low suspicion for PE per Well's criteria. no fever, patient afebrile, no crackles, low suspicion for pneumonia, does not require chest x-ray at this time. VITAL SIGNS are WNL, patient is afebrile. Ordered breathing treatment and medication. ER COURSE Reviewed previous patient charts. mild decreased breath sounds, ordered breathing treatment. Patient provided with prednisone. Albuterol/Atrovent breathing treatment provided. Following treatment patient states no longer having difficulty with breathing, lungs clear to auscultation with normal breath sounds. Patient is resting comfortably in no acute distress, speaking full sentences, texting on his phone. follow-up with primary care provider and discuss asthma medication. Avoid potential allergens. advised patient on dangers of long-term steroid use. Declined need for rx refill of inhaler medication. DISCHARGE: -Rx given for Prednisone. Begin taking tomorrow. At this time pt is stable for d/c to home. Patient is resting comfortably in no acute distress, nontoxic appearing, able to answer questions without difficulty. Patient to take medications as instructed Will provide with patient care instructions and any necessary prescriptions. Care plan and follow-up instructions provided. Patient instructed to follow-up with primary care provider in 3 - 5 days. Patient questions asked and answered. Patient reports understanding and agreement to treatment plan. ER precautions given. Patient instructed to return to ER immediately for any new or worsening of symptoms including but not limited to increasing SOB, persistent fever. - Please note that this Emergency Department Report was dictated using [employer]'s book author technology software, occasionally this can lead to erroneous entry secondary to interpretation by the dictation equipment. Last Vital Signs Date Time Temp Pulse Resp B/P (MAP) Pulse Ox O2 Delivery O2 Flow Rate FiO2 02/17/18 12:02 84 18 Room Air 02/17/18 12:02 97.9 109/78 96 97.9 Status: improved Disposition: HOME, SELF-CARE Condition: Stable Scripts Prednisone* (PREDNISONE*) 20 Mg Tablet 40 MG ORAL DAILY, #6 TAB Prov: Shashank Diamond 02/17/18 Patient Instructions: Asthma Attack Prevention Additional Instructions: Followup with primary care provider in 3 -5 days. Discuss asthma medication. Take medications as directed. Begin taking tomorrow. Patient declined need for refill of inhalers. Patient questions asked and answered. ER precautions given, patient instructed to return to ER immediately for any new or worsening of symptoms. Shashank Diamond Feb 17, 2018 12:27
[2018-02-17] MEDS ORDERED: Albuterol/Ipratropium 3ml neb HHN ONE (12:30)
[2018-02-17] MEDS ORDERED: PREDNISONE20 MG ORAL (12:33)
[2018-02-17 12:45] VITALS: BP 109/78
== END 2018-02-17 12:46 | disposition home or self-care (01) ==
LOC: EMR 12:39
DX: J45.909 Unspecified asthma, uncomplicated (principal); Z88.0 Allergy status to penicillin
CPT/HCPCS: 94640; 94664; 99283; J7512; J7620

== ENCOUNTER 2018-03-05 13:23 | Emergency (ER) | payer OTHER ==
[~2018-03-05] VITALS: Ht 180.3 cm; Wt 72.6 kg
[2018-03-05] MEDS ORDERED: Azithromycin 250mg tab ORAL ONE (14:30)
[2018-03-05] MEDS ORDERED: Lidocaine 1% MPF 10mg/ml 5ml INJ ONE (14:30)
[2018-03-05 14:45] VITALS: BP 118/81
[2018-03-05 15:00] LABS: APPEARANCE,URINE CLEAR; BILIRUBIN, URINE NEGATIVE (NEGATIVE); GLUCOSE, URINE (UA) NEGATIVE (NEGATIVE); KETONES,URINE 1+ (NEGATIVE); LEUKOCYTE ESTERASE ,URINE NEGATIVE (NEGATIVE); NITRITE,URINE NEGATIVE (NEGATIVE); PH,URINE 5 (4.5-8.0); PROTEIN,URINE 1+ (NEGATIVE); UROBILINOGEN,URINE NORMAL MG/DL (0.0-1.0)
[2018-03-05 15:02] LABS: COLOR,URINE YELLOW
--- NOTE | 2018-03-05 15:08 | Emergency Room Report ---
History of Present Illness General Chief Complaint: Male Urogenital Problems Source: Patient Present Illness HPI 32-year-old male patient presents ER complaining of any pain with urination for the past 2 weeks. Reports history of HIV, viral count normal, CD4 normal. Denies discharge or penile lesions. Reports sexually active with partner. Reports uses protection except for oral sex. Partner is also HIV positive as well, denies fever, chest pain, shortness of breath, abdominal pain, vomiting, back pain. Denies penile discharge. denies hematuria or testicular swelling or pain. denies vomiting. Allergies: Coded Allergies: PENICILLINS (Unverified Allergy, Unknown, 12/08/14) Patient History Past Medical History: see triage record Reviewed Nursing Documentation: PMH: Agreed; PSxH: Agreed Nursing Documentation-PMH Past Medical History: No Stated History Hx Hypertension: No Hx Pacemaker: No Hx Asthma: Yes Hx COPD: No Hx Diabetes: No Hx Cancer: No Hx Gastrointestinal Problems: No Hx Dialysis: No Hx Neurological Problems: No Hx Cerebrovascular Accident: No Hx Seizures: No Review of Systems All Other Systems: negative except mentioned in HPI Physical Exam Vital Signs Date Time Temp Pulse Resp B/P (MAP) Pulse Ox O2 Delivery O2 Flow Rate FiO2 03/05/18 14:04 98.1 73 16 118/81 97 Room Air 98.1 Sp02 EP Interpretation: reviewed, normal General Appearance: well appearing, no apparent distress, alert, GCS 15, non- toxic Head: normocephalic, atraumatic Eyes: bilateral eye normal inspection, bilateral eye PERRL ENT: hearing grossly normal, normal pharynx, no angioedema, normal voice, uvula midline, moist mucus membranes Neck: full range of motion Respiratory: lungs clear, normal breath sounds, no rhonchi, no respiratory distress, no accessory muscle use, no wheezing, speaking full sentences Cardiovascular #1: regular rate, rhythm, no edema Genitourinary: no CVA tenderness, deferred Musculoskeletal: back normal, digits/nails normal, gait/station normal, normal range of motion, non-tender Neurologic: alert, oriented x3, responsive, motor strength/tone normal, sensory intact Skin: no rash Medical Decision Making PA Attestation Dr. Chin is my supervising Physician whom patient management has been discussed with. Diagnostic Impression: Primary Impression: Encounter for assessment of sexually transmitted disease exposure ER Course Pt. presents to the ED c/o dysuria. Ddx considered but are not limited to gonorrhea, chalmydia, cystitis, pylonephritis. Vital signs: are WNL, pt. is afebrile Ordered UA and abx. ER COURSE: UA results unremarkable, no signs of infection, does not require treatment with antibiotics as an outpatient. Will provide Pyridium for pain with urination. Side effect may turn urine orange. Provided patient with Rocephin and Azithromycin in the ER. Informed patient medications will cover for gonorrhea and chlamydia, needs further follow-up evaluation and possible treatment of other sexual transmitted infections. provided with contact information for STI clinics. Advised to use safe sex practices including but not limited to use of condoms. Avoid sexual activity for the next 2 weeks. Instructed patient to follow up with STI clinic and/or PCP for STI evaluation and further treatment as necessary. Instructed patient to inform partners of needs for evaluation and treatment of possible infections. patient states she has a follow-up appointment with his primary care provider, will discuss evaluation and treatment at that time. DISCHARGE: Rx provided for Pyridium Patient is resting comfortably, in no acute distress, nontoxic appearing, talking without difficulty. Patient to take medications as instructed Will provide with patient care instructions and any necessary prescriptions. Care plan and follow-up instructions provided. Patient instructed to follow-up with primary care provider in 3 - 5 days. Patient questions asked and answered. Patient reports understanding and agreement to treatment plan. ER precautions given. Patient instructed to return to ER immediately for any new or worsening of symptoms including but not limited to increasing SOB, persistent fever. - Please note that this Emergency Department Report was dictated using [employer] operator technology software, occasionally this can lead to erroneous entry secondary to interpretation by the dictation equipment. Labs Test 03/05/18 14:35 Urine Color Yellow Urine Appearance Clear Urine pH 5 (4.5-8.0) Urine Specific [place] 1.020 (1.005-1.035) Urine Protein 1+ (NEGATIVE) Urine Glucose (UA) Negative (NEGATIVE) Urine Ketones 1+ (NEGATIVE) Urine Blood Negative (NEGATIVE) Urine Nitrite Negative (NEGATIVE) Urine Bilirubin Negative (NEGATIVE) Urine Urobilinogen Normal MG/DL (0.0-1.0) Urine Leukocyte Esterase Negative (NEGATIVE) Urine RBC 0-2 /HPF (0 - 0) Urine WBC 0-2 /HPF (0 - 0) Urine Squamous Epithelial Cells Occasional /LPF Urine Bacteria Few /HPF (NONE) Last Vital Signs Date Time Temp Pulse Resp B/P (MAP) Pulse Ox O2 Delivery O2 Flow Rate FiO2 03/05/18 14:04 98.1 73 16 118/81 97 Room Air 98.1 Disposition: HOME, SELF-CARE Condition: Stable Scripts Phenazopyridine Hcl* (PYRIDIUM*) 100 Mg Tablet 100 MG ORAL THREE TIMES A DAY, #10 TAB Prov: Shashank Diamond 03/05/18 Referrals: [facility]ERR[facility] (PCP) Patient Instructions: Dysuria, Sexually Transmitted Disease, [id number] Additional Instructions: Followup with primary care provider and followup with STI clinic for further evaluation and treatment. Alert sexual partners for need for evaluation and treatment. Wear condoms during sex. Take medications as instructed. Side effect of medication, may turn urine orange. Avoid sexual activity for 2 weeks. Drink plenty of fluids. Patient questions asked and answered. ER precautions given, patient instructed to return to ER immediately for any new or worsening of symptoms. Shashank Diamond Mar 05, 2018 15:08
[2018-03-05] MEDS ORDERED: PHENAZOPYRIDIN100 MG ORAL (15:41)
[2018-03-05 19:52] VITALS: BP 118/81
== END 2018-03-05 14:55 | disposition home or self-care (01) ==
LOC: EMR 14:11
DX: R30.0 Dysuria (principal); Z20.2 Contact with and (suspected) exposure to infections with a predominantly sexual mode of transmission; Z88.0 Allergy status to penicillin
CPT/HCPCS: 81003; 96372; 99283; J0696; Q0144

== ENCOUNTER 2018-09-14 10:55 | Emergency (ER) | payer OTHER ==
[~2018-09-14] VITALS: Ht 180.3 cm; Wt 72.6 kg
[~2018-09-14 10:55] MED LIST changes: +PHENAZOPYRIDIN100 MG ORAL
[2018-09-14 11:02] VITALS: BP 122/78
[2018-09-14] MEDS ORDERED: BIKTARVY 50-201 EACH PO (11:06)
--- NOTE | 2018-09-14 11:06 | NUR ---
ED Nurse Note: Pt walked in to ER c/o chest pain for 3 days without N/V. pt aao x4 and ambulatory. skin clean and intact. pt calm and cooperative with initial assessment.
--- NOTE | 2018-09-14 12:08 | Diagnostic Imaging Report ---
Indication: Cough Technique: One view of the chest Comparison: 01/12/2018 Findings: Lungs and pleural spaces are clear. Heart size is normal. No significant change Impression: No acute process
[2018-09-14] MEDS ORDERED: ZITHROMAX250 MG ORAL (12:16)
[2018-09-14] MEDS ORDERED: ZANTAC150 MG ORAL (12:16)
[2018-09-14 12:29] VITALS: BP 122/78
--- NOTE | 2018-09-14 12:31 | NUR ---
ER DISCHARGE NOTE: Patient is cleared to be discharged per ERMD, pt is aox4, on room air, with stable vital signs. pt was given dc and prescription instructions, pt was able to verbalize understanding, pt id band removed. pt is able to ambulate with steady gait. pt took all belongings.
--- NOTE | 2018-09-14 13:22 | Emergency Room Report ---
History of Present Illness General Chief Complaint: Chest Pain Source: Patient Present Illness HPI Patient presents emergency department today complaint chest pains sore throat. Patient has history HIV but states that his viral counts undetectable and CD4 counts are fine. He states that he develop acute onset of some sore throat and some chest discomfort worse with coughing. He denies any leg pain leg swelling. States that feels like a tightness or pulling in his chest. Denies any other associated signs symptoms. No other modifying factors no other complaints. Symptoms noted to be mild.No other modifying factors. No other associated signs and symptoms. No other complaints were noted. Allergies: Coded Allergies: PENICILLINS (Unverified Allergy, Unknown, 09/14/18) Patient History Past Medical History: HIV Past Surgical History: none Pertinent Family History: none Social History: Denies: smoking, alcohol use, drug use Reviewed Nursing Documentation: PMH: Agreed; PSxH: Agreed Nursing Documentation-PMH Past Medical History: No History, Except For Hx Hypertension: No Hx Pacemaker: No Hx Asthma: Yes Hx COPD: No Hx Diabetes: No Hx Cancer: No Hx Gastrointestinal Problems: No Hx Dialysis: No Hx Neurological Problems: No Hx Cerebrovascular Accident: No Hx Seizures: No Review of Systems All Other Systems: negative except mentioned in HPI Physical Exam Vital Signs Date Time Temp Pulse Resp B/P (MAP) Pulse Ox O2 Delivery O2 Flow Rate FiO2 09/14/18 10:59 97.3 98 17 122/78 98 Room Air Sp02 EP Interpretation: reviewed, normal General Appearance: normal inspection, well appearing, no apparent distress, alert Head: atraumatic Eyes: bilateral eye normal inspection ENT: hearing grossly normal, normal voice, tonsillar exudate Neck: normal inspection, full range of motion, supple, no bony tend Respiratory: normal inspection, lungs clear, normal breath sounds, no respiratory distress, no retraction, no wheezing Cardiovascular #1: regular rate, rhythm, no edema Gastrointestinal: normal inspection, normal bowel sounds, non tender, soft, no guarding, no hernia Genitourinary: no CVA tenderness Musculoskeletal: normal inspection, back normal, normal range of motion Neurologic: normal inspection, alert, responsive, speech normal Psychiatric: normal inspection, judgement/insight normal, mood/affect normal Skin: normal inspection, normal color, no rash Medical Decision Making Diagnostic Impression: Primary Impression: Gastritis Additional Impression: Tonsillitis ER Course Patient presents emergency department today complaint chest pain. Difficult considerations include gastroesophageal reflux disease, pneumonia, pneumothorax , acute coronary syndrome just name a few. Prior medical records were reviewed. Chest x-ray was negative. EKG was normal. Patient's exam is consistent with tonsillitis we'll give prescription for Zithromax because patient is allergic to penicillin.Patient is advised to follow up with primary doctor in 2-3 days and return the emergency room for any worsening symptoms and as needed. EKG Diagnostic Results Rate: normal Rhythm: NSR ST Segments: no acute changes Rhythm Strip Diag. Results EP Interpretation: yes Rate: 71 Rhythm: NSR, no PVC's, no ectopy Chest X-Ray Diagnostic Results Chest X-Ray Diagnostic Results : Chest X-Ray Ordered: Yes # of Views/Limited/Complete: 1 View Indication: Chest Pain EP Interpretation: Yes Interpretation: no consolidation, no effusion, no pneumothorax, no acute cardiopulmonary disease Impression: No acute disease Last Vital Signs Date Time Temp Pulse Resp B/P (MAP) Pulse Ox O2 Delivery O2 Flow Rate FiO2 09/14/18 12:29 98.1 79 16 126/69 98 Room Air Status: improved Disposition: HOME, SELF-CARE Condition: Stable Scripts Ranitidine Hcl* (ZANTAC*) 150 Mg Tablet 150 MG ORAL DAILY, #30 TAB 0 Refills Prov: Rigoberto Carrillo MD 09/14/18 Azithromycin* (ZITHROMAX*) 250 Mg Tablet 250 MG ORAL DAILY, #6 TAB 0 Refills Take two tables once daily for 1 day, then one tablet once daily for 4 days. Prov: Rigoberto Carrillo MD 09/14/18 Referrals: [facility] (PCP) Patient Instructions: Heartburn, Tonsillitis, [id number] Rigoberto Carrillo MD Sep 14, 2018 13:22
== END 2018-09-14 12:30 | disposition home or self-care (01) ==
LOC: EMR 11:30
DX: K29.70 Gastritis, unspecified, without bleeding (principal); J03.90 Acute tonsillitis, unspecified; J45.909 Unspecified asthma, uncomplicated; Z88.0 Allergy status to penicillin
CPT/HCPCS: 71045; 93005; 99283

== ENCOUNTER 2018-11-09 12:55 | Emergency (ER) | payer OTHER ==
[~2018-11-09] VITALS: Ht 180.3 cm; Wt 72.6 kg
[~2018-11-09 12:55] MED LIST changes: +BIKTARVY 50-201 EACH PO
[2018-11-09 13:01] VITALS: BP 125/86
--- NOTE | 2018-11-09 13:58 | Emergency Room Report ---
History of Present Illness General Chief Complaint: Pain Source: Patient Present Illness HPI 33-year-old male presents to the emergency department complaining of 9 out of 10 in severity right knee pain to the point where he fell twice getting out of bed. Patient reports history of avascular necrosis bilaterally he states he's never actually had hip pain he only has pain in the right knee and has had MRIs as well as x-rays performed and has appointment with a specialist on November 14. Patient states that he is all out of his meloxicam which has been working for him and states that he does on occasion will require taking tramadol for breakthrough pain and states that he is out of those as well. Patient states that this is a newer diagnosis that he received in May of last year. Patient significant past medical history of HIV he denies fevers, chills, erythema warmth or swelling of the joints. Patient denies recent illness, chest pain, dizziness, shortness of breath. Patient states that due to the pain walking requires much more effort and he is noticing that he is fatigued and not interested in doing things that he used to do regularly due to the increase in effort required to complete certain tasks. Denies night sweats, significant changes in weight or history of immune diseases. Patient reports history of asthma states he did not take steroids very often in the past. Pt. reports he is still in the middle of being fully worked-up for the cause of his avascular necrosis. he denies recent trauma or fall. Reports several NVC's years ago but did not have symptoms immediately after. Pt. states he was doing physical therapy which was helping a lot, however he is awaiting insurance approval for additional treatments. Allergies: Coded Allergies: PENICILLINS (Unverified Allergy, Unknown, 09/14/18) Patient History Past Medical History: see triage record Past Surgical History: none Pertinent Family History: none Reviewed Nursing Documentation: PMH: Agreed; PSxH: Agreed Nursing Documentation-PMH Past Medical History: No History, Except For Hx Hypertension: No Hx Pacemaker: No Hx Asthma: Yes Hx COPD: No Hx Diabetes: No Hx Cancer: No Hx Gastrointestinal Problems: No Hx Dialysis: No Hx Neurological Problems: No Hx Cerebrovascular Accident: No Hx Seizures: No Review of Systems All Other Systems: negative except mentioned in HPI Physical Exam Vital Signs Date Time Temp Pulse Resp B/P (MAP) Pulse Ox O2 Delivery O2 Flow Rate FiO2 11/09/18 13:01 97.9 100 20 125/86 97 Room Air Sp02 EP Interpretation: reviewed, normal General Appearance: no apparent distress, alert, GCS 15, non-toxic Head: normocephalic, atraumatic Eyes: bilateral eye normal inspection, bilateral eye PERRL ENT: hearing grossly normal, normal voice Neck: full range of motion Respiratory: chest non-tender, lungs clear, normal breath sounds, speaking full sentences Cardiovascular #1: regular rate, rhythm, normal capillary refill Cardiovascular #2: 2+ dorsalis pedis (R), 2+ dorsalis pedis (L) Musculoskeletal: back normal, gait/station normal - compensatory favoring the right leg. , normal range of motion, tender - TTP to the right lateral hip > left hip, FROM with pain, some ttp to the right knee as well. no erythmea, no warmth, no swelling or instability of the ligaments. Neurologic: alert, oriented x3, responsive, motor strength/tone normal, sensory intact, speech normal, grossly normal Psychiatric: judgement/insight normal Skin: normal color, no rash, warm/dry, well hydrated Lymphatic: no adenopathy Medical Decision Making PA Attestation Dr. Man is my supervising Physician whom patient management has been discussed with. Diagnostic Impression: Primary Impression: Medication refill Additional Impression: History of avascular necrosis of capital femoral epiphysis ER Course 33-year-old male presents to the emergency department complaining of 9 out of 10 in severity right knee pain to the point where he fell twice getting out of bed. Patient reports history of avascular necrosis bilaterally he states he's never actually had hip pain he only has pain in the right knee and has had MRIs as well as x-rays performed and has appointment with a specialist on November 14. Patient states that he is all out of his meloxicam which has been working for him and states that he does on occasion will require taking tramadol for breakthrough pain and states that he is out of those as well. Patient states that this is a newer diagnosis that he received in May of last year. Patient significant past medical history of HIV he denies fevers, chills, erythema warmth or swelling of the joints. Patient denies recent illness, chest pain, dizziness, shortness of breath. Patient states that due to the pain walking requires much more effort and he is noticing that he is fatigued and not interested in doing things that he used to do regularly due to the increase in effort required to complete certain tasks. Denies night sweats, significant changes in weight or history of immune diseases. Patient reports history of asthma states he did not take steroids very often in the past. Pt. reports he is still in the middle of being fully worked-up for the cause of his avascular necrosis. he denies recent trauma or fall. Reports several NVC's years ago but did not have symptoms immediately after. Pt. states he was doing physical therapy which was helping a lot, however he is awaiting insurance approval for additional treatments. Pt reports when he was dx'd with HIV he also was found to have G & C and was treated for that as well, and that was the only previous hx of G & C. Ddx considered but are not limited to: Septic joint, osteoporosis, MSK injury, urgent need for medication refill request, non -urgent medication refill request just to name a few. Vital signs: are WNL, pt. is afebrile H&PE are most consistent with non- urgent need for medication refill. Pt. does not have evidence to suggest high probability of emergent complications resulting from the symptoms he is presenting with today. pt. is Alert,with Oriented, and able to make decisions. Non-toxic in appearance, NAD. Pt. has imaging results from previous studies performed late 2018 which do show bilateral avascular necrosis. ORDERS: none required at this time, the diagnosis is clinical ED INTERVENTIONS: None required at this time. Imaging was offered to patient to evaluate for any complications from recent falls but is declining, he reports he has follow up, and just needs a temporary refill of his pain medications until then. -I do not identify an emergent condition at this time. With current presentation , pt. is stable for close outpatient follow up and conservative treatment. D/ w pt. to return promptly to ED with worsening or new symptoms.- Pt. verbalizes' understanding and agreement with proposed treatment plan. DISCHARGE: At this time pt. is stable for d/c to home. Will provide printed patient care instructions, and any necessary prescriptions. Care plan and follow up instructions have been discussed with the patient prior to discharge. Last Vital Signs Date Time Temp Pulse Resp B/P (MAP) Pulse Ox O2 Delivery O2 Flow Rate FiO2 11/09/18 13:01 97.9 100 20 125/86 97 Room Air Disposition: HOME, SELF-CARE Condition: Stable Scripts Tramadol Hcl* (ULTRAM*) 50 Mg Tablet 50 MG ORAL Q6H PRN for For Pain, #12 TAB 0 Refills Prov: Jennifer Vieyra 11/09/18 Meloxicam* (MELOXICAM*) 15 Mg Tablet 15 MG PO DAILY for 14 Days, #14 TAB Prov: Jennifer Vieyra 11/09/18 Referrals: [facility] (PCP) Patient Instructions: Avascular Necrosis Additional Instructions: Take medications as directed. Follow up with a Primary Care Provider in 3-5 days, even if your symptoms have resolved. --Please review list of primary care clinics, if you do not already have a primary care provider Return sooner to ED if new symptoms occur, or current symptoms become worse. Do not drink alcohol, drive, or operate heavy machinery while taking Tramadol as this may cause drowsiness. - Please note that this Emergency Department Report was dictated using [employer] patternmaker technology software, occasionally this can lead to erroneous entry secondary to interpretation by the dictation equipment. Jennifer Vieyra Nov 09, 2018 13:58
[2018-11-09] MEDS ORDERED: MELOXICAM15 MG PO (13:59)
[2018-11-09] MEDS ORDERED: TRAMADOL HCL50 MG ORAL (13:59)
[2018-11-09 14:09] VITALS: BP 125/86
--- NOTE | 2018-11-09 14:09 | NUR ---
ER DISCHARGE NOTE: Patient is cleared to be discharged per ERMD, pt is aox4, on room air, with stable vital signs. pt was given dc and prescription instructions, pt was able to verbalize understanding, pt id band removed without complications. pt is able to ambulate with steady gait. pt took all belongings.
== END 2018-11-09 14:09 | disposition home or self-care (01) ==
LOC: EMR 13:22
DX: M25.561 Pain in right knee (principal); M87.9 Osteonecrosis, unspecified; Z76.0 Encounter for issue of repeat prescription; Z88.0 Allergy status to penicillin
CPT/HCPCS: 99282

== ENCOUNTER 2019-06-01 16:36 | Emergency (ER) | payer OTHER ==
[~2019-06-01] VITALS: Ht 180.3 cm; Wt 80.7 kg
[~2019-06-01 16:36] MED LIST changes: +MELOXICAM15 MG PO; +TRAMADOL HCL50 MG ORAL
[2019-06-01 16:48] VITALS: BP 135/89
--- NOTE | 2019-06-01 17:25 | Emergency Room Report ---
History of Present Illness General Chief Complaint: Sore Throat Source: Patient Present Illness HPI 34-year-old male presents to the emergency department complaining of 9 out of 10 severity sore throat and pain exacerbation upon swallowing x 4 days. Patient also reports tonsillar swelling. Reports history of immune compromise and states that he is HIV positive. States he is not sure what his last CD4 count was however his infectious disease doctor did not seem to be too concerned. Patient reports fevers and chills on initial presentation he states he did not have any today. He denies cough, neck stiffness, rhinorrhea or nasal congestion. Patient states he did not yet receive this years flu vaccination. No other aggravating or relieving factors at this time. Denies changes in his voice. Allergies: Coded Allergies: PENICILLINS (Unverified Allergy, Unknown, 09/14/18) Patient History Past Medical History: see triage record, HIV Past Surgical History: none Pertinent Family History: none Reviewed Nursing Documentation: PMH: Agreed; PSxH: Agreed Nursing Documentation-PMH Past Medical History: No History, Except For Hx Hypertension: No Hx Pacemaker: No Hx Asthma: Yes Hx COPD: No Hx Diabetes: No Hx Cancer: No Hx Gastrointestinal Problems: No Hx Dialysis: No Hx Neurological Problems: No Hx Cerebrovascular Accident: No Hx Seizures: No Review of Systems All Other Systems: negative except mentioned in HPI Physical Exam Vital Signs Date Time Temp Pulse Resp B/P (MAP) Pulse Ox O2 Delivery O2 Flow Rate FiO2 06/01/19 16:48 98.8 105 18 135/89 98 Room Air Sp02 EP Interpretation: reviewed, normal General Appearance: no apparent distress, alert, GCS 15, non-toxic Head: normocephalic, atraumatic Eyes: bilateral eye normal inspection, bilateral eye PERRL ENT: hearing grossly normal, normal voice, TMs + canals normal, uvula midline, moist mucus membranes, tonsillar swelling, pharyngeal erythema, tonsillar exudate Neck: full range of motion Respiratory: chest non-tender, lungs clear, normal breath sounds, no respiratory distress, no wheezing, speaking full sentences Cardiovascular #1: regular rate, rhythm, tachycardia Musculoskeletal: gait/station normal, normal range of motion, non-tender Neurologic: alert, oriented x3, responsive, motor strength/tone normal, sensory intact, speech normal, grossly normal Psychiatric: judgement/insight normal Skin: no rash Lymphatic: no adenopathy Medical Decision Making PA Attestation Dr. Hyatt Is my supervising Physician whom patient management has been discussed with. Diagnostic Impression: Primary Impression: Pharyngitis, acute Qualified Codes: J02.0 - Streptococcal pharyngitis ER Course 34-year-old male presents to the emergency department complaining of 9 out of 10 severity sore throat and pain exacerbation upon swallowing x 4 days. Patient also reports tonsillar swelling. Reports history of immune compromise and states that he is HIV positive. States he is not sure what his last CD4 count was however his infectious disease doctor did not seem to be too concerned. Patient reports fevers and chills on initial presentation he states he did not have any today. He denies cough, neck stiffness, rhinorrhea or nasal congestion. Patient states he did not yet receive this years flu vaccination. No other aggravating or relieving factors at this time. Denies changes in his voice. Ddx considered but are not limited to: pharyngitis, strep, FUR IRONER, ludwigs angina, URI Vital signs: Tachycardic other vs are WNL, pt. is afebrile H&PE are most consistent with: pharyngitis presumed strep. ORDERS: None required at this time as the diagnosis is clinical ED INTERVENTIONS: none required at this time. DISCHARGE: At this time pt. is stable for d/c to home. Will provide printed patient care instructions, and any necessary prescriptions. Care plan and follow up instructions have been discussed with the patient prior to discharge. Last Vital Signs Date Time Temp Pulse Resp B/P (MAP) Pulse Ox O2 Delivery O2 Flow Rate FiO2 06/01/19 16:48 98.8 105 18 135/89 (104) 98 Room Air Disposition: HOME, SELF-CARE Condition: Stable Patient Instructions: Tonsillitis Additional Instructions: Take medications as directed. Follow up with a Primary Care Provider in 3-5 days, even if your symptoms have resolved. Return sooner to ED if new symptoms occur, or current symptoms become worse. - Please note that this Emergency Department Report was dictated using [employer] man technology software, occasionally this can lead to erroneous entry secondary to interpretation by the dictation equipment. Jennifer Vieyra Jun 01, 2019 17:25
[2019-06-01] MEDS ORDERED: IBUPROFEN600 MG ORAL (17:27)
[2019-06-01] MEDS ORDERED: ZITHROMAX250 MG ORAL (17:27)
[2019-06-01] MEDS ORDERED: LIDOCAINE VISC100 ML ORAL (17:27)
[2019-06-01 17:47] VITALS: BP 129/75
== END 2019-06-01 17:47 | disposition home or self-care (01) ==
LOC: EMR 17:15
DX: J02.0 Streptococcal pharyngitis (principal); B20 Human immunodeficiency virus [HIV] disease; Z88.0 Allergy status to penicillin; R00.0 Tachycardia, unspecified
CPT/HCPCS: 99282

== ENCOUNTER 2020-05-22 13:06 | Emergency (ER) | payer OTHER ==
[~2020-05-22] VITALS: Ht 180.3 cm; Wt 80.7 kg
[2020-05-22 13:41] VITALS: BP 126/81
--- NOTE | 2020-05-22 13:43 | NUR ---
ED Nurse Note:pt. came from home with c/o rectal bleed, A/ox4 ambulatory, was examed by ER
[2020-05-22] MEDS ORDERED: COLACE100 MG ORAL (13:47)
[2020-05-22] MEDS ORDERED: ANUSOL-HC25 MG RECTAL (13:47)
[2020-05-22 14:00] VITALS: BP 126/81
--- NOTE | 2020-05-22 14:01 | NUR ---
ED Nurse Note: Pt cleared by health care Provider for discharge. DC instructions/prescription was given and explained to pt and verbalized understanding of teachings. All medical deviecs such as ID band removed. Pt is AAO x4, ambulatory and left with all personal belongings.
--- NOTE | 2020-05-23 11:36 | Emergency Room Report ---
History of Present Illness General Chief Complaint: General Complaint Source: Patient Present Illness HPI 35-year-old male presents to ED for evaluation. His blood in stool when he wipes for the last 2 days. Has pain. States that he was using an enema previously because he was unable to have a bowel movement. Denies taking blood thinners. Denies any abdominal pain. Denies any nausea or vomiting. No other aggravating relieving factors. Denies any other associated symptoms Allergies: Coded Allergies: PENICILLINS (Unverified Allergy, Unknown, 09/14/18) COVID-19 Screening Contact w/high risk pt: No Experienced COVID-19 symptoms?: No COVID-19 Testing performed DIRECTOR OF ACCOUNTS PAYABLE: No Patient History Past Medical History: asthma Past Surgical History: none Pertinent Family History: none Social History: Denies: smoking, alcohol use, drug use Immunizations: UTD Reviewed Nursing Documentation: PMH: Agreed; PSxH: Agreed Nursing Documentation-PMH Past Medical History: No History, Except For Hx Hypertension: No Hx Pacemaker: No Hx Asthma: Yes Hx COPD: No Hx Diabetes: No Hx Cancer: No Hx Gastrointestinal Problems: No Hx Dialysis: No Hx Neurological Problems: No Hx Cerebrovascular Accident: No Hx Seizures: No Review of Systems All Other Systems: negative except mentioned in HPI Physical Exam Vital Signs Date Time Temp Pulse Resp B/P (MAP) Pulse Ox O2 Delivery O2 Flow Rate FiO2 05/22/20 13:21 98.1 79 16 126/81 (96) 100 Room Air Sp02 EP Interpretation: reviewed, normal General Appearance: no apparent distress, alert, GCS 15, non-toxic Head: normocephalic, atraumatic Eyes: bilateral eye normal inspection, bilateral eye PERRL ENT: hearing grossly normal, normal pharynx, no angioedema, normal voice Neck: full range of motion, supple/symm/no masses Respiratory: chest non-tender, lungs clear, normal breath sounds, speaking full sentences Cardiovascular #1: regular rate, rhythm, no edema Cardiovascular #2: 2+ carotid (R), 2+ carotid (L), 2+ radial (R), 2+ radial (L), 2+ dorsalis pedis (R), 2+ dorsalis pedis (L) Gastrointestinal: normal bowel sounds, non tender, soft, non-distended, no guarding, no rebound Rectal: hemorrhoids Genitourinary: normal inspection, no CVA tenderness Musculoskeletal: back normal, normal range of motion, gait/station normal, non- tender Neurologic: alert, motor strength/tone normal, oriented x3, sensory intact, responsive, speech normal Psychiatric: judgement/insight normal, memory normal, mood/affect normal, no suicidal/homicidal ideation Reflexes: 3+ bicep (R), 3+ bicep (L), 3+ tricep (R), 3+ tricep (L), 3+ knee (R), 3+ knee (L) Lymphatic: no adenopathy Medical Decision Making Diagnostic Impression: Primary Impression: Hemorrhoids Qualified Codes: K64.9 - Unspecified hemorrhoids ER Course Hospital Course 35 year-old male presenting to ED complaining of rectal bleeding, he has been constipated Differential diagnoses include: internal hemorrhoids, external hemorrhoids, anal fissure, constipation Clinical course Patient placed on stretcher in ED. After initial history physical exam reveals a young male in no acute distress. Upon rectal exam there is good rectal tone there is no gross blood. There is fullness on rectal exam with tenderness consistent with an internal hemorrhoid. I discussed findings with patient. Reassurance given. Explained that hemorrhoids come with constipation. Will treat both. Safe for discharge for close outpatient follow-up Diagnosis - hemorrhoids Stable and discharged to home with prescription for Anusol suppository, Colace. Patient instructed to followup with PMD. Patient instructed to return to ED if symptoms recur or worsen Last Vital Signs Date Time Temp Pulse Resp B/P (MAP) Pulse Ox O2 Delivery O2 Flow Rate FiO2 05/22/20 14:00 98.1 76 16 126/81 100 Room Air Status: improved Disposition: HOME, SELF-CARE Condition: Stable Scripts Docusate Sodium* (COLACE*) 100 Mg Capsule 100 MG ORAL THREE TIMES A DAY, #30 CAP Prov: Rufino Chin MD 05/22/20 Hydrocortisone Acetate* (ANUSOL-HC*) 25 Mg Supp.rect 1 SUPP RECTAL TWICE A DAY, #10 SUPP Prov: Rufino Chin MD 05/22/20 Referrals: [facility] ([facility]P) Eloisa Arevalo [facility] Patient Instructions: Hemorrhoids, [id number] Rufino Chin MD May 23, 2020 11:36
== END 2020-05-22 14:00 | disposition home or self-care (01) ==
LOC: EMR 13:42
DX: K64.9 Unspecified hemorrhoids (principal); J45.909 Unspecified asthma, uncomplicated
CPT/HCPCS: 99282

== ENCOUNTER 2020-06-29 12:01 | Emergency (ER) | payer OTHER ==
[~2020-06-29] VITALS: Ht 180.3 cm; Wt 77.1 kg
[~2020-06-29 12:01] MED LIST changes: +ANUSOL-HC25 MG RECTAL; +COLACE100 MG ORAL
[2020-06-29 12:13] VITALS: BP 114/80
--- NOTE | 2020-06-29 12:18 | NUR ---
ED Nurse Note: pt wlaked in from home. Vitals signs stable on RA as documented. PT states that he has had painful sores on the right side of the hard palate of his mouth. He states that they began 3 days ago. He also states that it "brar when i pee" taht started about a week ago.
[2020-06-29] MEDS ORDERED: Lidocaine 1% MPF 10mg/ml 5ml INJ ONE (13:30)
[2020-06-29] MEDS ORDERED: Azithromycin 250mg tab ORAL ONE (13:30)
--- NOTE | 2020-06-29 13:45 | NUR ---
ED Nurse Note:urine sent to lbs
[2020-06-29 14:05] LABS: APPEARANCE,URINE CLEAR; BILIRUBIN, URINE NEGATIVE (NEGATIVE); GLUCOSE, URINE (UA) NEGATIVE (NEGATIVE); KETONES,URINE NEGATIVE (NEGATIVE); LEUKOCYTE ESTERASE ,URINE NEGATIVE (NEGATIVE); NITRITE,URINE NEGATIVE (NEGATIVE); PH,URINE 8 (4.5-8.0); PROTEIN,URINE NEGATIVE (NEGATIVE); UROBILINOGEN,URINE 8 MG/DL (0.0-1.0)
[2020-06-29 14:07] LABS: COLOR,URINE YELLOW
--- NOTE | 2020-06-29 14:32 | Emergency Room Report ---
History of Present Illness General Chief Complaint: Sore Throat Source: Patient Present Illness HPI Patient with presents with sore throat. This is developed over the last few days. In addition to that he has had dysuria. There is been no pus. There is been no hematuria. He denies any fever chills or adenopathy. He states that his partner recently tested positive for chlamydia. He is concerned that he might have chlamydia at this time both in the urethra and also in his mouth. The patient is HIV positive. Patient denies exposure to Covid positive contacts. Allergies: Coded Allergies: PENICILLINS (Unverified Allergy, Unknown, 09/14/18) COVID-19 Screening Contact w/high risk pt: No Experienced COVID-19 symptoms?: No COVID-19 Testing performed RENAL DIALYSIS RN: Yes COVID-19 Screening: Negative COVID-19 COVID-19 Testing Source: nasal Patient History Past Medical History: old chart reviewed, asthma, HIV, other - Avascular necrosis of the hip Social History: Denies: smoking Social History Narrative From home Reviewed Nursing Documentation: PMH: Agreed; PSxH: Agreed Nursing Documentation-PMH Past Medical History: No History, Except For Hx Hypertension: No Hx Pacemaker: No Hx Asthma: Yes Hx COPD: No Hx Diabetes: No Hx Cancer: No Hx Gastrointestinal Problems: No Hx Dialysis: No Hx Neurological Problems: No Hx Cerebrovascular Accident: No Hx Seizures: No Review of Systems Constitutional: Denies: fever ENT: Reports: see HPI Respiratory: Denies: cough, shortness of breath Cardiovascular: Denies: chest pain Gastrointestinal: Denies: diarrhea Genitourinary: Reports: see HPI Musculoskeletal: Denies: joint pain Skin: Denies: rash Hematologic/Lymphatic: Reports: see HPI Physical Exam Vital Signs Date Time Temp Pulse Resp B/P (MAP) Pulse Ox O2 Delivery O2 Flow Rate FiO2 06/29/20 12:13 98.1 96 16 131/83 (99) 99 Room Air Sp02 EP Interpretation: reviewed, normal General Appearance: well appearing, no apparent distress, GCS 15 Head: normocephalic Eyes: bilateral eye normal inspection, bilateral eye PERRL ENT: no angioedema, moist mucus membranes, pharyngeal erythema Neck: normal inspection, full range of motion Respiratory: normal inspection Cardiovascular #1: regular rate, rhythm Cardiovascular #2: 2+ radial (R) Gastrointestinal: normal inspection Genitourinary: normal inspection Musculoskeletal: other - Walks with a limp Neurologic: alert, oriented x3, grossly normal Psychiatric: mood/affect normal Skin: normal color, no rash, other - Fully dressed Lymphatic: normal inspection, other - no lymphadenopathy Medical Decision Making Diagnostic Impression: Primary Impression: Possible exposure to STD ER Course Patient presents with sore throat and dysuria after possible exposure to chlamydia. Differential includes chlamydia, gonorrhea, pharyngitis, urinary t ract infection amongst others. Urinalysis will be sent along with chlamydia and GC titers. The patient will be treated with Rocephin and azithromycin. Urinalysis clear. Discussed findings with patient and the need for safe sex practices. Patient stable for outpatient observation and treatment. Laboratory Tests Test 06/29/20 13:20 Urine Color Yellow Urine Appearance Clear Urine pH 8 (4.5-8.0) Urine Specific [place] 1.010 (1.005-1.035) Urine Protein Negative (NEGATIVE) Urine Glucose (UA) Negative (NEGATIVE) Urine Ketones Negative (NEGATIVE) Urine Blood Negative (NEGATIVE) Urine Nitrite Negative (NEGATIVE) Urine Bilirubin Negative (NEGATIVE) Urine Urobilinogen 8 MG/DL (0.0-1.0) H Urine Leukocyte Esterase Negative (NEGATIVE) Last Vital Signs Date Time Temp Pulse Resp B/P (MAP) Pulse Ox O2 Delivery O2 Flow Rate FiO2 06/29/20 15:00 98.6 85 18 114/85 99 Room Air Status: improved Disposition: HOME, SELF-CARE Condition: Improved Referrals: [facility],REFERRING (PCP) Zaid Man MD Jun 29, 2020 14:32
[2020-06-29 15:00] VITALS: BP 114/85
== END 2020-06-29 15:00 | disposition home or self-care (01) ==
LOC: EMR 12:45
DX: Z20.2 Contact with and (suspected) exposure to infections with a predominantly sexual mode of transmission (principal); B20 Human immunodeficiency virus [HIV] disease; J45.909 Unspecified asthma, uncomplicated; Z88.0 Allergy status to penicillin
CPT/HCPCS: 81003; 87491; 87590; 96372; J0696; Q0144; Z7502; 99283